=== PATIENT | male | born 1940 | race Caucasian/White ===

== ENCOUNTER 2023-07-22 12:40 | Emergency (ER) | payer MEDICARE, OTHER, SELFPAY ==
[2023-07-22 12:51] VITALS: BP 165/89
[2023-07-22 13:16] LABS: % Basophils 0.5 % (0-2); % Eosinophils 2.5 % (0-6); % Immature Granulocytes 0.3 % (0-0.5); % Lymphocytes 18.1 % (20.5-51.1); % Monocytes 12.5 % (1.7-9.3); % Neutrophils 66.1 % (42.2-75.2); Absolute Eosinophils 0.2 10^3/uL (0-0.7); Absolute Lymphocytes 1.2 10^3/uL (1.2-3.4); Absolute Monocytes 0.8 10^3/uL (0.1-0.6); Absolute Neutrophils 4.2 10^3/uL (1.4-6.5); Hematocrit 42.5 % (39.0-52.0); Hemoglobin 14.1 g/dL (13.0-18.0); Mean Corp Hgb Conc. 33.2 g/dL (33.0-37.0); Mean Corpuscular Hgb 32.9 pg (27.0-31.0); Mean Corpuscular Volume 99.1 fL (80.0-94.0); Mean Platelet Volume 13.4 fL (7.4-10.4); Nucleated Red Blood Cells % 0 % (-); Platelet Count 128 10^3/uL (130-400); Red Blood Cell Count 4.29 10^6/uL (4.70-6.10); Red Cell Dist. Width 12.3 % (11.5-14.5); White Blood Cell Count 6.3 10^3/uL (4.8-10.8)
[2023-07-22 13:27] VITALS: BP 131/71
[2023-07-22 13:28] VITALS: BMI 32.3
[2023-07-22 13:33] LABS: ALT (SGPT) 24 U/L (0-50); AST (SGOT) 32 U/L (17-59); Albumin 4.1 g/dl (3.5-5.0); Alkaline Phosphatase 98 U/L (38-126); Blood Urea Nitrogen 24 mg/dl (9-20); Calcium 9.1 mg/dl (8.4-10.2); Carbon Dioxide 28 mmol/L (22-30); Chloride 105 mmol/L (98-107); Estimated Creatinine Clearance 45 ml/min; Glucose 108 mg/dl (70-99); Potassium 4.9 mmol/L (3.5-5.1); Sodium 137 mmol/L (135-145); Total Bilirubin 0.9 mg/dl (0.2-1.3); Total Protein 6.8 g/dl (6.3-8.2); eGFR 50.49
[2023-07-22 13:35] LABS: Troponin I < 0.012 ng/ml
[2023-07-22 14:00] VITALS: BP 125/74
--- NOTE | 2023-07-22 15:47 | ED.GENMED ---
History of Present Illness
General
Chief Complaint: Chest Pain
Source: patient and spouse
Exam Limitations: none
Time Seen by Provider: 07/22/23 13:32
Nursing documentation reviewed up to this point in time: agreed with
Travel History
Have you had any contact with someone who has COVID-19?: No
Do you have any symptoms of coronavirus? Fever > 100 degrees, chills, cough, shortness of breath, sore throat, loss of taste or smell, muscle aches, or headache?: No
History of Present Illness
History of Present Illness:
82-year-old male with past medical history of hypertension hyperlipidemia previous left-sided nephrectomy presenting to the emergency department today with concerns of chest discomfort started 1:00 in the morning roughly 12 hours prior to arrival to
the emergency department. Claims it was sharp and lasted for a few moments. Claims had some very minor discomfort to left chest at this point but denies this being consistent with pain. Denies any nausea vomiting shortness of breath diaphoresis
or additional symptoms associated.
Past History
Past History
ED Past Medical History: Other (kidney stone); Negative IDDM
ED Past Surgical History: Urological and Other (hernia repair); Negative Cardiac
Social History
Tobacco: Non-smoker
Alcohol: None
Drug: None
Personal:
Living: with family
Employment: Retired
Family History
Family History: Other (Noncontributory)
Review of Systems
Review of Systems
Allergies reviewed?: Yes
All Other Systems: ROS reviewed and negative except as documented in HPI and ROS
Phy Exam
Physical Exam
Physical Exam:
GENERAL: Alert , in no apparent distress
EYE: pupils equal and reactive
NECK: Supple, no significant adenopathy.
ENT: o/p clr, mmm.
CARDIAC: Regular rate and rhythm .
LUNGS: Clear breath sounds bilaterally, no acute respiratory distress, no wheezes/rales/rhonchi
ABDOMEN: Soft, without focal tenderness, no r/g, no cvat
NEUROLOGICAL: Alert and oriented, no focal neuro deficits
SKIN: Warm and dry, skin intact.
MUSCULOSKELETAL: No edema, well perfused.
PSYCH: Normal and appropriate interaction.
Scores
Heart Score for Chest Pain Patients
STEMI patient?: No
History: Slightly or Non-Suspicious
ECG: Normal
Age: >/= 65 years
Risk Factors: >/= 3 Risk Factors or History of CAD
Troponin: </= Normal Limit
Heart Score for Chest Pain Patients: 4
Heart Score Risk: 20.3% MACE over next 6 weeks
Course
Orders/Labs/Results
Orders:
Orders
07/22/23 12:41
ECG [Electrocardiogram (*1)] Urgent
Reason for Study: Chest Pain
EKG- Treatment ONCE
07/22/23 13:03
Complete Blood Count/With Diff Urgent
Comprehensive Metabolic Panel Urgent
Troponin I Urgent
07/22/23 13:50
Chest [CR Chest - 2 Views ] Urgent
Comment:
Reason For Exam: cp
07/22/23 15:01
EKG- Treatment ONCE
07/22/23 15:38
Troponin I Urgent
Abnormal Lab Results
07/22/23
13:03
RBC 4.29 L 10^6/uL
(4.70-6.10)
MCV 99.1 H fL
(80.0-94.0)
MCH 32.9 H pg
(27.0-31.0)
Plt Count 128 L 10^3/uL
(130-400)
MPV 13.4 H fL
(7.4-10.4)
Absolute Monos (auto) 0.8 H 10^3/uL
(0.1-0.6)
Lymphocytes % 18.1 L %
(20.5-51.1)
Monocytes % 12.5 H %
(1.7-9.3)
BUN 24 H mg/dl
(9-20)
Creatinine 1.4 H mg/dL
(0.7-1.3)
Glucose 108 H mg/dl
(70-99)
07/22/23 13:03
07/22/23 13:03
Vital Signs
Initial and Last Documented VS:
Initial Vital Signs
Temp Pulse Resp BP Pulse Ox
98.2 F 64 16 165/89 98
07/22/23 12:51 07/22/23 12:51 07/22/23 12:51 07/22/23 12:51 07/22/23 12:51
Last Documented Vital Signs
Temp Pulse Resp BP Pulse Ox
98.2 F 55 14 125/74 96
07/22/23 12:51 07/22/23 14:45 07/22/23 14:45 07/22/23 14:00 07/22/23 14:45
MDM/Problems Addressed
MDM/Problems Addressed:
82-year-old male presenting to the emergency department today with concerns of chest discomfort. He claims it was sharp pain that he felt to build night last night lasted for few minutes and has otherwise resolved but does have a very mild
irritation feeling to the left chest denies associated shortness of breath nausea vomiting or additional concerns. Here he is in normal heart and lung examination initially was hypertensive but that improved without specific treatment. Patient in
no distress throughout ER stay initial EKG is normal unchanged troponin negative labs unremarkable creatinine slightly elevated but at his baseline. Repeated EKG and troponin performed. No changes on EKG troponin negative x 2. Patient appears
stable for outpatient close follow-up with cardiology. Return precautions were given.
*Critical Care Note
Total Time (30-74mins, 75-104mins- exclusive of procedures): Not Applicable
ED Attending Note
-
Portions of this chart may have been created with voice recognition software.� Occasional wrong word or��sound alike� substitutions may have occurred due to the inherent limitations of voice recognition software.
Discharge Plan
Departure
Patient Disposition: Home (Routine Discharge)
Date of Disposition: 07/22/23
Time of Disposition: 16:25
Patient with high blood pressure during this ER visit?: No
Condition: Good
Covid-19: Not Applicable
Discharge Problem:
Chest pain
Instructions: Chest Pain DCA Follow Up
Prescriptions:
No Action
alfuzosin 10 MG tablet extended release 24 hr
10 mg PO QPM
atorvastatin [Lipitor] 10 mg Tablet
10 mg PO DAILY
zinc sulfate 50 mg zinc (220 mg) Tablet
50 mg PO DAILY
ascorbic acid (vitamin C) [Vitamin C] 500 mg Tablet
500 mg PO DAILY
cholecalciferol (vitamin D3) [Vitamin D3] 25 mcg (1,000 unit) Tablet
25 mcg PO DAILY
omega 3-pql-ozd-fish oil [Fish Oil] 1,000 mg (120 mg-180 mg) Capsule
1 cap PO DAILY
coQ10 (ubiquinol) 100 mg Capsule
100 mg PO DAILY
Referrals:
Pj Mendez MD [Family Provider] -
Activity Restrictions/Additional Instructions:
You came to the emergency department today with concerns of chest discomfort.. Reassuring evaluation 2 negative troponin test 2 normal EKGs and otherwise reassuring chest x-ray. Please follow closely with cardiology within the next week. Return
to the emergency department any worsening, new or concerning symptoms.
Interventions
Interventions:
*Risk Screen - Suicide Last Done: 07/22/23 13:42
*General Assessment Last Done: 07/22/23 13:42
*Neglect/Abuse Screening Last Done: 07/22/23 13:42
*ED COVID-19 Vaccine History Last Done: 07/22/23 12:51
ED- Cardiac Assessment Last Done: 07/22/23 13:42
[2023-07-22 16:00] VITALS: BP 156/70
[2023-07-22 16:20] LABS: Troponin I < 0.012 ng/ml
== END 2023-07-22 16:46 | disposition home or self-care (01) ==
LOC: EMR 12:40
PROVIDERS: Physician Assistant; EMERGENCY PHYSICIAN Emergency Medicine; FAMILY PHYSICIAN Family Medicine
DX: R07.9 Chest pain, unspecified (principal); I10 Essential (primary) hypertension
CPT/HCPCS: 99285; 71046; 80053; 84484; 85025; 93005

== ENCOUNTER → 2023-07-30 10:18 | Outpatient (REF) | payer MEDICARE, OTHER, SELFPAY ==
[2023-07-30 11:23] LABS: Hemoglobin 13.8 g/dL (13.0-18.0)
[2023-07-30 11:50] LABS: ALT (SGPT) 24 U/L (0-50); AST (SGOT) 31 U/L (17-59); Alkaline Phosphatase 97 U/L (38-126); Blood Urea Nitrogen 26 mg/dl (9-20); Calcium 9.1 mg/dl (8.4-10.2); Carbon Dioxide 27 mmol/L (22-30); Chloride 107 mmol/L (98-107); Glucose 117 mg/dl (70-99); HDL Cholesterol 43 mg/dl; LDL Cholesterol, Calculated 82 mg/dl; Potassium 4.4 mmol/L (3.5-5.1); Sodium 140 mmol/L (135-145); Total Cholesterol 153 mg/dl (50-199); Total Protein 6.6 g/dl (6.3-8.2); Triglyceride 143 mg/dl (10-149); Very Low Density Lipoprotein 28 mg/dl (0-30); eGFR 50.49
[2023-07-30 11:54] LABS: Calcium 9.4 mg/dl (8.4-10.2)
[2023-07-30 12:05] LABS: Intact PTH 75.1 pg/ml (13.6-85.8)
== END ==
LOC: REG 10:18
PROVIDERS: ATTENDING PHYSICIAN Nuclear Medicine Nuclear Cardiology; FAMILY PHYSICIAN Family Medicine; REFERRING PHYSICIAN Specialist
DX: R07.9 Chest pain, unspecified (principal); E78.2 Mixed hyperlipidemia; I45.10 Unspecified right bundle-branch block; N18.31 Chronic kidney disease, stage 3a
CPT/HCPCS: 36415; 80053; 80061; 83970; 85018

== ENCOUNTER → 2023-10-31 10:57 | Outpatient (REF) | payer MEDICARE, OTHER, SELFPAY | LOC: RCS 10:57 | PROVIDERS: ATTENDING PHYSICIAN Nuclear Medicine Nuclear Cardiology; FAMILY PHYSICIAN Family Medicine | DX: R07.9 Chest pain, unspecified (principal); R94.31 Abnormal electrocardiogram [ECG] [EKG]; R06.02 Shortness of breath | CPT/HCPCS: 93306 ==

== ENCOUNTER 2023-11-12 19:45 | Emergency (ER) | payer MEDICARE, OTHER, SELFPAY ==
[2023-11-12 19:46] VITALS: BP 121/98
--- NOTE | 2023-11-12 20:17 | ED.SKININJ ---
HPI-Injury
General
Chief Complaint: Bite
Source: patient and spouse
Exam Limitations: none
Time Seen by Provider: 11/12/23 19:56
Nursing documentation reviewed up to this point in time: agreed with
Travel History
Have you had any contact with someone who has COVID-19?: No
Do you have any symptoms of coronavirus? Fever > 100 degrees, chills, cough, shortness of breath, sore throat, loss of taste or smell, muscle aches, or headache?: No
History of Present Illness-Injury
Initial Injury comments:
83-year-old male with history as documented presents for evaluation of animal bite. Patient reports that about 2 hours prior to arrival he was picking up some branches out of a large pile in his yard. He says that when he wrapped his arms around
the pile he felt something bite him on the left forearm. He says he did not see any animal around but he quickly dropped the pile�he is not sure exactly what bit him. He came to the emergency room for assessment. He says there have been snakes in
his yard as well as various small mammals. He denies any complaints�he has no real pain around the bite, no swelling, no paresthesias. No other complaints. He is unsure of his last tetanus.
Past History
Past History
ED Past Medical History: Other (kidney stone); Negative IDDM
ED Past Surgical History: Urological and Other (hernia repair); Negative Cardiac
Social History
Tobacco: Non-smoker
Alcohol: None
Drug: None
Personal:
Living: with family
Employment: Retired
Family History
Family History: Other (Noncontributory)
Review of Systems
Review of Systems
All Other Systems: ROS reviewed and negative except as documented in HPI and ROS
Skin: Reports other (Animal bite)
Phy Exam
Physical Exam
Physical Exam:
General: Well appearing and non-toxic
HEENT: protecting airway
Neck: appears supple
CV: No evidence of cyanosis
Resp: No accessory muscle use
Abd: Non-distended
Extremities: No deformities
Neuro: Alert
Psych: Normal affect
Skin: Patient has 2 small puncture wounds on the left ventral forearm with no induration, erythema, bruising or any other apparent injury to the surrounding tissue
Scores
Heart Failure Risk
Heart Failure Risk Score: Not Applicable
Heart Score for Chest Pain Patients
STEMI patient?: Not applicable
Withdrawal Assessment of Alcohol
Withdrawal Assessment Completed?: Not applicable
Course
Orders/Labs/Results
Orders:
Orders
11/12/23 20:10
Amoxicillin 875 mg/Clav 125 mg [Augmentin 875 mg/125 mg] 1 tablet PO NOW STA
Rabies Vaccine (Pcec)/Pf [Rabavert Rabies Vacc W-Diluent] 2.5 unit IM .ONCE ONE
Tetanus/Diphth/Acelpertussis [Adacel] 0.5 ml IM .ONCE ONE
11/12/23 20:15
Rabies Immune Globulin/Pf [HyperRAB] 1,840 unit IM NOW STA
Vital Signs
Initial and Last Documented VS:
Initial Vital Signs
Temp Pulse Resp BP Pulse Ox
36.6 C 67 18 121/98 97
11/12/23 19:46 11/12/23 19:46 11/12/23 19:46 11/12/23 19:46 11/12/23 19:46
Last Documented Vital Signs
Temp Pulse Resp BP Pulse Ox
36.6 C 67 18 121/98 97
11/12/23 19:46 11/12/23 19:46 11/12/23 19:46 11/12/23 19:46 11/12/23 19:46
MDM/Problems Addressed
Differential Diagnosis Includes:
Animal bite
MDM/Problems Addressed:
83-year-old male presents with bite to the left forearm�he is not sure what bit him, was lifting a pile of branches and felt something bite him on the left forearm. He says he did not see any animals but dropped the pile rather quickly. He has 2
small puncture wounds to the left forearm as described above�there is no damage to the surrounding tissue. Wound was vigorously irrigated here. Favor based on appearance that this is likely a snake bite but given the uncertainty surrounding it we
will cover him with rabies prophylaxis, treat with Augmentin as well. Will update his tetanus.
*Pulse Oximetry
Patient hypoxic: no
*Critical Care Note
Total Time (30-74mins, 75-104mins- exclusive of procedures): Not Applicable
Data Reviewed
Source: patient and spouse
ED Attending Note
-
Portions of this chart may have been created with voice recognition software.� Occasional wrong word or��sound alike� substitutions may have occurred due to the inherent limitations of voice recognition software.
Discharge Plan
Departure
Patient Disposition: Home (Routine Discharge)
Date of Disposition: 11/12/23
Time of Disposition: 20:12
Patient with high blood pressure during this ER visit?: No
Discharge Problem:
Animal bite
Instructions: Animal Bites (DC), Rabies
Prescriptions:
New
RabAvert (PF) 2.5 unit Suspension For Reconstitution
1 ml IM . DIRECTED Qty: 3 0RF
Rx Instructions:
See Rabies Vaccine Post Exposure Prophylaxis Instruction Sheet for Dosing Instructions
amoxicillin-pot clavulanate 875-125 mg tablet
1 tab PO BID Qty: 14 0RF
No Action
alfuzosin 10 MG tablet extended release 24 hr
10 mg PO QPM
atorvastatin [Lipitor] 10 mg Tablet
10 mg PO DAILY
zinc sulfate 50 mg zinc (220 mg) Tablet
50 mg PO DAILY
ascorbic acid (vitamin C) [Vitamin C] 500 mg Tablet
500 mg PO DAILY
cholecalciferol (vitamin D3) [Vitamin D3] 25 mcg (1,000 unit) Tablet
25 mcg PO DAILY
omega 2-aev-rzp-fish oil [Fish Oil] 1,000 mg (120 mg-180 mg) Capsule
1 cap PO DAILY
coQ10 (ubiquinol) 100 mg Capsule
100 mg PO DAILY
Referrals:
Pj Mendez MD [Family Provider] - Call in 1-3 days for appt
Stand Alone Forms: Rabies Vaccine Post Exp Dosing
Activity Restrictions/Additional Instructions:
Thank you for visiting the Emergency Department at [facility].
1. Please schedule a follow up appointment as directed. Call first thing tomorrow morning to make an appointment.
2. If indicated, please take your medications as instructed and indicated on discharge paperwork.
3. If any of your symptoms do not improve, or persist, or become more severe within 6-12 hours, please return to the emergency department for further care.
4. Please return to the emergency department if you develop a headache, neck pain/stiffness, fever greater than 100.4F, chest pain, shortness of breath, persistent nausea, vomiting, slurred speech, difficulty walking, numbness/tingling, weakness,
signs of infection or any other symptoms that are worrisome to you.
Please call [phone] if you have any questions.
Interventions
Interventions:
*Risk Screen - Suicide Last Done: 11/12/23 19:46
*General Assessment Last Done: 11/12/23 19:46
*Neglect/Abuse Screening Last Done: 11/12/23 19:46
Discharge Date and Time
Print Language: POLISH
[2023-11-12] MEDS: AUGMENTIN 875 MG/125 MG 1 TABLET PO (20:26)
[2023-11-12] MEDS: ADACEL 0.5 ML IM (20:28)
[2023-11-12] MEDS: HyperRAB 1840 UNIT IM (20:50)
[2023-11-12] MEDS: RABAVERT RABIES VACC W-DILUENT 2.5 UNIT IM (20:50)
== END 2023-11-12 21:20 | disposition home or self-care (01) ==
LOC: EMR 19:45
PROVIDERS: EMERGENCY PHYSICIAN Emergency Medicine; FAMILY PHYSICIAN Family Medicine
DX: S51.852A Open bite of left forearm, initial encounter (principal); W64.XXXA Exposure to other animate mechanical forces, initial encounter; Z23 Encounter for immunization; Z87.442 Personal history of urinary calculi
CPT/HCPCS: 99282; 90471; 96372; 90375; 90675; 90715

== ENCOUNTER 2023-11-19 14:24 | Outpatient (RCR) | payer MEDICARE, OTHER, SELFPAY ==
[2023-11-15 14:30] VITALS: BP 135/71
[2023-11-15] MEDS: RABAVERT RABIES VACC W-DILUENT 2.5 UNIT IM (14:41)
[2023-11-19 14:46] VITALS: BP 127/61
[2023-11-19] MEDS: RABAVERT RABIES VACC W-DILUENT 2.5 UNIT IM (14:50)
== END 2023-11-20 09:51 | disposition home or self-care (01) ==
LOC: OID 14:24
PROVIDERS: ATTENDING PHYSICIAN Emergency Medicine; FAMILY PHYSICIAN Family Medicine
DX: Z20.3 Contact with and (suspected) exposure to rabies (principal); Z23 Encounter for immunization
CPT/HCPCS: 90471; 90675

== ENCOUNTER 2023-11-26 14:15 | Outpatient (RCR) | payer MEDICARE, OTHER, SELFPAY ==
[2023-11-26 14:40] VITALS: BP 140/69
[2023-11-26] MEDS: RABAVERT RABIES VACC W-DILUENT 2.5 UNIT IM (14:45)
== END 2023-12-25 23:59 | disposition home or self-care (01) ==
LOC: OID 14:15
PROVIDERS: ATTENDING PHYSICIAN Emergency Medicine; FAMILY PHYSICIAN Family Medicine
DX: Z20.3 Contact with and (suspected) exposure to rabies (principal); Z23 Encounter for immunization
CPT/HCPCS: 90471; 90675

== ENCOUNTER → 2024-01-24 11:01 | Outpatient (REF) | payer MEDICARE, OTHER, SELFPAY | LOC: HWRAD 11:01 | PROVIDERS: ATTENDING PHYSICIAN Specialist; FAMILY PHYSICIAN Family Medicine; REFERRING PHYSICIAN Surgery Vascular Surgery | DX: I71.40 Abdominal aortic aneurysm, without rupture, unspecified (principal) | CPT/HCPCS: 76770 ==

== ENCOUNTER → 2024-04-04 10:54 | Outpatient (REF) | payer MEDICARE, OTHER, SELFPAY | LOC: RCS 10:54 | PROVIDERS: ATTENDING PHYSICIAN Nuclear Medicine Nuclear Cardiology; FAMILY PHYSICIAN Family Medicine | DX: R07.9 Chest pain, unspecified (principal); R94.31 Abnormal electrocardiogram [ECG] [EKG]; R06.02 Shortness of breath; I45.10 Unspecified right bundle-branch block | CPT/HCPCS: 93306 ==

== ENCOUNTER → 2024-04-09 10:12 | Outpatient (REF) | payer MEDICARE, OTHER, SELFPAY ==
[2024-04-09 11:27] LABS: Hematocrit 41.9 % (39.0-52.0); Hemoglobin 14.1 g/dL (13.0-18.0)
[2024-04-09 11:52] LABS: Blood Urea Nitrogen 26 mg/dl (9-20); Calcium 9.4 mg/dl (8.4-10.2); Carbon Dioxide 28 mmol/L (22-30); Chloride 105 mmol/L (98-107); Glucose 104 mg/dl (70-99); Phosphorus 3.1 mg/dl (2.5-4.5); Potassium 4.4 mmol/L (3.5-5.1); Sodium 142 mmol/L (135-145); eGFR 54.85
[2024-04-09 11:54] LABS: HDL Cholesterol 38 mg/dl; LDL Cholesterol, Calculated 68 mg/dl; Total Cholesterol 138 mg/dl (50-199); Triglyceride 161 mg/dl (10-149); Very Low Density Lipoprotein 32 mg/dl (0-30)
[2024-04-09 12:18] LABS: Urine Protein < 5 mg/dl
[2024-04-09 12:29] LABS: Microalbumin, Random Urine <0.6 mg/dl (0.6-1.7)
[2024-04-11 15:06] LABS: Intact PTH 67.4 pg/ml (13.6-85.8)
== END ==
LOC: REG 10:12
PROVIDERS: ATTENDING PHYSICIAN Specialist; FAMILY PHYSICIAN Family Medicine; REFERRING PHYSICIAN Nuclear Medicine Nuclear Cardiology
DX: N18.31 Chronic kidney disease, stage 3a (principal); E78.2 Mixed hyperlipidemia
CPT/HCPCS: 36415; 80061; 80069; 82043; 82570; 83970; 84156; 85014; 85018

== ENCOUNTER 2024-05-31 16:19 | Emergency (ER) | payer MEDICARE, OTHER, SELFPAY ==
[2024-05-31 16:20] VITALS: BP 147/74
[2024-05-31 19:09] VITALS: BP 141/70
--- NOTE | 2024-05-31 20:39 | ED.GENMED ---
History of Present Illness
General
Chief Complaint: Breathing Problem
Source: patient and spouse
Exam Limitations: none
Time Seen by Provider: 05/31/24 20:25
History of Present Illness
History of Present Illness:
83yoM with a history of hypertension, hyperlipidemia, CKD, and prior nephrectomy presenting with his for evaluation of a cough. Patient has been sick for the past 4 to 5 days with a cough. Cough is productive of yellow mucus. He has been
using ljwv-sgn-cekbcnn medications including Robitussin and Mucinex. He is also experiencing some diarrhea. He denies any fevers. Patient was seen at urgent care prior to arrival and he was reportedly hypoxic to 86%. He denies any shortness of
breath or chest pain. No prior history of heart or lung disease.
Past History
Past History
ED Past Medical History: Other (kidney stone); Negative IDDM
ED Past Surgical History: Urological and Other (hernia repair); Negative Cardiac
Social History
Tobacco: Non-smoker
Alcohol: None
Drug: None
Personal:
Living: with family
Employment: Retired
Family History
Family History: Other (Noncontributory)
Phy Exam
General Physical Exam
General Presentation: well appearing and no apparent distress
General age: appears stated age
General Skin: warm and dry
General Habitus: normal
General Mental: alert
ENT Exam
ENT Exam: normocephalic
Cardiovascular Exam
Cardiovascular Exam: regular rate/rhythm and no murmur
Pulmonary Exam
Pulmonary Exam: lungs clear, no respiratory distress, no rales, no crackles and no rhonchi
Neurological Exam
Neurological Exam: alert
[place] Coma Scale
Eye Opening: Spontaneous
Verbal Response: Oriented
Motor Response: Obeys Commands
GCS Total Score: 15
Skin Exam
Skin Exam: normal color and warm/dry
Psychiatric Exam
Psychiatric Exam: normal mood/affect
Scores
Heart Failure Risk
Heart Failure Risk Score: Not Applicable
Course
Orders/Labs/Results
Orders:
Orders
05/31/24 16:24
CR Chest - 2 Views Urgent
Comment:
Reason For Exam: cough, reported hypoxia
05/31/24 20:[address] Non Medication Order As Directed
Physician Order: Ambulatory pulse ox
05/31/24 20:38
Respiratory Syncytial Virus Urgent
JAYLIN Source: Nasal Swab
Specimen Description:
Date Specimen was Collected: 05/31/24
Time Specimen was Collected: 21:52
05/31/24 21:46
COVID-19 Antigen Urgent
Source: Nasal Swab
Complete Blood Count/With Diff Urgent
Comprehensive Metabolic Panel Urgent
Manual Differential Urgent
Influenza A+B Rapid Molecular Urgent
JAYLIN Source: Nasal Swab
Specimen Description:
Abnormal Lab Results
05/31/24
21:46
WBC 3.7 L 10^3/uL
(4.8-10.8)
RBC 4.49 L 10^6/uL
(4.70-6.10)
MCV 96.2 H fL
(80.0-94.0)
MCH 31.8 H pg
(27.0-31.0)
Plt Count 116 L 10^3/uL
(130-400)
MPV 12.8 H fL
(7.4-10.4)
Band Neutrophils 4 H %
(0-3)
Monocytes (Manual) 12 H %
(2-9)
Sodium 133 L mmol/L
(135-145)
BUN 27 H mg/dl
(9-20)
Creatinine 1.6 H mg/dL
(0.7-1.3)
SARS-CoV-2 Antigen Positive A
(Negative)
05/31/24 21:46
05/31/24 21:46
Vital Signs
Initial and Last Documented VS:
Initial Vital Signs
Temp Pulse Resp BP Pulse Ox
98.1 F 81 20 147/74 95
05/31/24 16:20 05/31/24 16:20 05/31/24 16:20 05/31/24 16:20 05/31/24 16:20
Last Documented Vital Signs
Temp Pulse Resp BP Pulse Ox
98.1 F 83 17 149/94 94
05/31/24 16:20 05/31/24 22:58 05/31/24 22:58 05/31/24 22:58 05/31/24 22:58
MDM/Problems Addressed
Differential Diagnosis Includes:
83yoM here cough x 4-5 days. Productive of yellow sputum. Reportedly hypoxic to 86% at urgent care. Patient denies SOB/CP. Oxygen saturation 95% in triage. Remainder of vitals are normal. He is well appearing in no distress. Exam is reassuring.
Lungs CTA and respirations non-labored. Differential diagnosis includes but is not limited to: COVID, influenza, bronchitis, pneumonia
Initial ED plan: CXR obtained in triage which is negative for infiltrates. Will check CBC, CMP, and COVID/flu/RSV swab.
*Critical Care Note
Total Time (30-74mins, 75-104mins- exclusive of procedures): Not Applicable
Update Note
Update Note:
Patient tested positive for COVID. Labs reveal a mild leukopenia which is likely 2/2 viral illness. Renal function is at baseline. Oxygen saturation rechecked multiple times throughout ED stay and there were no episodes of hypoxia. Ambulatory pulse
ox 92%. No indication for hospitalization at this time. Supportive care and quarantine discussed. Advised close follow-up with PCP and ED return precautions discussed. Patient in agreement with plan and was discharged in stable condition.
ED Attending Note
-
Portions of this chart may have been created with voice recognition software.� Occasional wrong word or��sound alike� substitutions may have occurred due to the inherent limitations of voice recognition software.
Discharge Plan
Departure
Patient Disposition: Home (Routine Discharge)
Date of Disposition: 05/31/24
Time of Disposition: 22:45
Patient with high blood pressure during this ER visit?: No
Discharge Problem:
COVID-19
Instructions: Coronavirus Home Quarantine
Prescriptions:
No Action
alfuzosin 10 MG tablet extended release 24 hr
10 mg PO QPM
atorvastatin [Lipitor] 10 mg Tablet
10 mg PO DAILY
zinc sulfate 50 mg zinc (220 mg) Tablet
50 mg PO DAILY
ascorbic acid (vitamin C) [Vitamin C] 500 mg Tablet
500 mg PO DAILY
cholecalciferol (vitamin D3) [Vitamin D3] 25 mcg (1,000 unit) Tablet
25 mcg PO DAILY
omega 4-rkv-qvf-fish oil [Fish Oil] 1,000 mg (120 mg-180 mg) Capsule
1 cap PO DAILY
coQ10 (ubiquinol) 100 mg Capsule
100 mg PO DAILY
RabAvert (PF) 2.5 unit Suspension For Reconstitution
1 ml IM . DIRECTED Qty: 3 0RF
Rx Instructions:
See Rabies Vaccine Post Exposure Prophylaxis Instruction Sheet for Dosing Instructions
Referrals:
Pj Mendez MD [Family Provider] -
Activity Restrictions/Additional Instructions:
Drink plenty of fluids and rest. Take Tylenol as needed for fevers/body aches. Wear your mask until day 10.
Please follow-up with your family doctor. Return to the ER with any worsening symptoms or shortness of breath.
Interventions
Interventions:
*Risk Screen - Suicide Last Done: 05/31/24 16:20
*General Assessment Last Done: 05/31/24 16:20
*Neglect/Abuse Screening Last Done: 05/31/24 16:20
*Nursing Disposition Last Done: 05/31/24 22:58
ED- Cardiac Assessment Last Done: 05/31/24 22:56
ED- Pulmonary Assessment Last Done: 05/31/24 22:56
Discharge Date and Time
Discharge Date/Time: 05/31/24 22:59
Print Language: [place]
[2024-05-31 22:04] LABS: COVID-19 Antigen Positive (Negative)
[2024-05-31 22:06] VITALS: BP 138/88
[2024-05-31 22:11] LABS: Hematocrit 43.2 % (39.0-52.0); Hemoglobin 14.3 g/dL (13.0-18.0); Mean Corp Hgb Conc. 33.1 g/dL (33.0-37.0); Mean Corpuscular Hgb 31.8 pg (27.0-31.0); Mean Corpuscular Volume 96.2 fL (80.0-94.0); Mean Platelet Volume 12.8 fL (7.4-10.4); Platelet Count 116 10^3/uL (130-400); Red Blood Cell Count 4.49 10^6/uL (4.70-6.10); Red Cell Dist. Width 13.1 % (11.5-14.5); White Blood Cell Count 3.7 10^3/uL (4.8-10.8)
[2024-05-31 22:20] LABS: ALT (SGPT) 34 U/L (0-50); AST (SGOT) 49 U/L (17-59); Albumin 4.1 g/dl (3.5-5.0); Alkaline Phosphatase 98 U/L (38-126); Blood Urea Nitrogen 27 mg/dl (9-20); Calcium 8.5 mg/dl (8.4-10.2); Carbon Dioxide 23 mmol/L (22-30); Chloride 99 mmol/L (98-107); Glucose 76 mg/dl (70-99); Potassium 4.8 mmol/L (3.5-5.1); Sodium 133 mmol/L (135-145); Total Bilirubin 0.6 mg/dl (0.2-1.3); Total Protein 6.6 g/dl (6.3-8.2); eGFR 42.75
[2024-05-31 22:33] LABS: Absolute Neutrophils -Man Diff 2.1 10^3/uL (1.4-6.5); Band Neutrophils 4 % (0-3); Lymphocytes 31 % (20-51); Monocytes 12 % (2-9); Normal RBC Morphology Yes; Platelets Checked Yes; Segmented Neutrophils 53 % (42-75); Total Cells Counted 100
[2024-05-31 22:58] VITALS: BP 149/94
== END 2024-05-31 22:59 | disposition home or self-care (01) ==
LOC: EMR 16:19
PROVIDERS: Physician Assistant; EMERGENCY PHYSICIAN Emergency Medicine; FAMILY PHYSICIAN Family Medicine
DX: U07.1 COVID-19 (principal); I12.9 Hypertensive chronic kidney disease with stage 1 through stage 4 chronic kidney disease, or unspecified chronic kidney disease; N18.9 Chronic kidney disease, unspecified; E78.5 Hyperlipidemia, unspecified
CPT/HCPCS: 99284; 71046; 80053; 85025; 87502; 87811

== ENCOUNTER 2024-06-08 18:28 | Inpatient (IN) | payer MEDICARE, OTHER, SELFPAY ==
[2024-06-05] VITALS (8 sets, daily range): BP systolic 95–130; BP diastolic 56–85; BMI 30.4
--- NOTE | 2024-06-05 12:40 | ED.GENMED ---
ED Provider Triage
<Ron Holder PA-C - Last Filed: 06/05/24 12:41>
-
Patient seen by provider in Triage?: Seen in Triage
83-year-old male presents with increased weakness persistent diarrhea and shortness of breath. He was here 5 days ago diagnosed with COVID. Brought here by EMS and started on nasal cannula oxygen. He notes no improvement of his symptoms. He
denies chest pain
He is requiring nasal cannula oxygen at triage but otherwise is stable we will start workup with labs and chest x-ray
Seen by healthcare provider at triage but warrants further assessment
History of Present Illness
<Ron Holder PA-C - Last Filed: 06/05/24 12:41>
General
Chief Complaint: Cold/Flu/URI Symptoms
Time Seen by Provider: 06/05/24 17:49
<Russ Block PA-C - Last Filed: 06/05/24 21:34>
History of Present Illness
History of Present Illness:
83-year-old male presents to the emergency department for evaluation of worsening shortness of breath, dry cough, and diarrhea. He began with symptoms approximately 10 days ago, was seen in this emergency department 5 days ago and diagnosed with
COVID-19. At that time chest x-ray was obtained showing no evidence for pneumonia. He is continue to feel weaker with poor p.o. intake is unable to ambulate steadily due to weakness.
Past History
<Ron Holder PA-C - Last Filed: 06/05/24 12:41>
Past History
ED Past Medical History: Other (kidney stone); Negative IDDM
ED Past Surgical History: Urological and Other (hernia repair); Negative Cardiac
Social History
Tobacco: Non-smoker
Alcohol: None
Drug: None
Personal:
Living: with family
Employment: Retired
Family History
Family History: Other (Noncontributory)
Review of Systems
<Russ Block PA-C - Last Filed: 06/05/24 21:34>
Review of Systems
Allergies reviewed?: Yes
All Other Systems: ROS reviewed and negative except as documented in HPI and ROS
Phy Exam
<Russ Block PA-C - Last Filed: 06/05/24 21:34>
Physical Exam
Physical Exam:
GEN: Well appearing, NAD, WDWN
HEENT: Oral mucosa moist, no scleral icterus
Cardiac: Regular rate
Lung: No respiratory distress, no tachypnea, grossly diminished breath sounds, crackles at the right base
MSK: No gross deformity or injuries
Skin: Good color, no pallor or jaundice, no rashes
Neuro: AO x3, moves all extremities freely
Psych: Calm, cooperative
Course
<Ron Holder PA-C - Last Filed: 06/05/24 12:41>
Orders/Labs/Results
Orders:
Orders
06/05/24 12:39
Electrocardiogram (*1) Urgent
Reason for Study: Fatigue / Weakness
EKG- Treatment ONCE
06/05/24 12:40
CR Chest - 2 Views Urgent
Comment:
Reason For Exam: SOB
06/05/24 13:36
Complete Blood Count/With Diff Urgent
Comprehensive Metabolic Panel Urgent
06/05/24 Dinner
Regular
At Your Request: Limited Participation
06/05/24 18:07
0.9% Sodium Chloride 1000 ml [Nss] 1,000 ml IV BOLUS
Azithromycin 500 mg/250 ml [Zithromax Infusion] 500 mg in 250 ml IV NOW
CefTRIAXone [Rocephin] 1,000 mg IV NOW STA
06/05/24 18:42
Admit/Transfer Patient As Directed
Co-Sign Provider:
Level of Care: Observation services
Assign to:: Medical/Surgical
Physician / Group: willie
Diagnosis: pneumonia, covid
PRN Pain Medication Management As Directed
May give lesser potent ordered pain med per pt: Yes
preference::
Protocol:: Medication orders for pain may be administered in a
manner that supports deferring to patient preference
when the pt is:
- Requesting an ordered lesser potent pain medication.
Least to most potent pain medications are defined
as: acetaminophen < NSAID < tramadol < opioids
(morphine, oxycodone, hydromorphone).
- Requesting a lesser dose of the same medication IF
ORDERED.
- Requesting a less intrusive route of administration
if both routes are prescribed by the provider (PO <
IV).
06/05/24 18:43
Code Status As Directed
Resuscitation Status: Full Code
06/05/24 18:46
CDIFF [C difficile Antigen & Toxins] Urgent
JAYLIN Source: Feces/Stool
Specimen Description:
Norovirus by PCR Urgent
JAYLIN Source: Feces/Stool
Specimen Description:
Sputum Culture [Respiratory Culture/Gram Stain] Urgent
JAYLIN Source: Sputum
Specimen Description:
Stool Culture Urgent
JAYLIN Source: Feces/Stool
Specimen Description:
06/05/24 20:56
Acetaminophen [Tylenol] 1,000 mg PO Q6HPRN PRN
Heparin 5,000 units SC Q12
Ondansetron Injectable [Zofran] 4 mg IV Q6HPRN PRN
06/05/24 20:56
Activity As Directed
Activity Level: As Tolerated
Vital Signs As Directed
Frequency: Per unit guidelines
DX Deep Vein Thrombosis Video Routine
06/05/24 22:00
Dexamethasone Sod Phosphate [Decadron] 6 mg IV Q24H
06/06/24 02:00
Doxycycline Hyclate [Vibramycin] 100 mg 0.9% Sodium Chloride 250 ml [Nss] 250 ml IV Q12H
06/06/24 06:00
Complete Blood Count/With Diff IN AM
Comprehensive Metabolic Panel IN AM
06/06/24 08:00
Ascorbic Acid [Vitamin C] 500 mg PO DAILY
Atorvastatin [Lipitor] 10 mg PO DAILY
Cholecalciferol (Vitamin D3) [VITAMIN D3 (cholecalciferol)] 25 mcg PO DAILY
Metoprolol Xl [Toprol Xl] 25 mg PO DAILY
Zinc 50mg (Zinc Sulfate 220mg) [Zinc] 50 mg PO DAILY
06/06/24 18:00
Tamsulosin [Flomax] 0.4 mg PO QPM
06/06/24 20:00
CefTRIAXone [Rocephin] 1,000 mg IV Q24H
Abnormal Lab Results
06/05/24
13:36
RBC 4.49 L 10^6/uL
(4.70-6.10)
MCH 31.6 H pg
(27.0-31.0)
Plt Count 78 L D 10^3/uL
(130-400)
MPV 12.7 H fL
(7.4-10.4)
Absolute Lymphs (auto) 0.9 L 10^3/uL
(1.2-3.4)
Absolute Monos (auto) 1.0 H 10^3/uL
(0.1-0.6)
Lymphocytes % 16.7 L %
(20.5-51.1)
Monocytes % 19.6 H %
(1.7-9.3)
Sodium 134 L mmol/L
(135-145)
Carbon Dioxide 20 L mmol/L
(22-30)
BUN 22 H mg/dl
(9-20)
Creatinine 1.4 H mg/dL
(0.7-1.3)
Glucose 109 H mg/dl
(70-99)
AST 66 H U/L
(17-59)
Total Protein 6.2 L g/dl
(6.3-8.2)
06/05/24 13:36
06/05/24 13:36
Vital Signs
Initial and Last Documented VS:
Initial Vital Signs
Temp Pulse Resp BP Pulse Ox
98.5 F 79 16 95/56 93
06/05/24 12:38 06/05/24 12:38 06/05/24 12:38 06/05/24 12:38 06/05/24 12:38
Last Documented Vital Signs
Temp Pulse Resp BP Pulse Ox
98.2 F 81 18 119/73 95
06/05/24 16:08 06/05/24 16:08 06/05/24 16:08 06/05/24 20:00 06/05/24 20:15
<Russ Block PA-C - Last Filed: 06/05/24 21:34>
Orders/Labs/Results
Orders:
Orders
06/05/24 12:39
Electrocardiogram (*1) Urgent
Reason for Study: Fatigue / Weakness
EKG- Treatment ONCE
06/05/24 12:40
CR Chest - 2 Views Urgent
Comment:
Reason For Exam: SOB
06/05/24 13:36
Complete Blood Count/With Diff Urgent
Comprehensive Metabolic Panel Urgent
06/05/24 Dinner
Regular
At Your Request: Limited Participation
06/05/24 18:07
0.9% Sodium Chloride 1000 ml [Nss] 1,000 ml IV BOLUS
Azithromycin 500 mg/250 ml [Zithromax Infusion] 500 mg in 250 ml IV NOW
CefTRIAXone [Rocephin] 1,000 mg IV NOW STA
06/05/24 18:42
Admit/Transfer Patient As Directed
Co-Sign Provider:
Level of Care: Observation services
Assign to:: Medical/Surgical
Physician / Group: willie
Diagnosis: pneumonia, covid
PRN Pain Medication Management As Directed
May give lesser potent ordered pain med per pt: Yes
preference::
Protocol:: Medication orders for pain may be administered in a
manner that supports deferring to patient preference
when the pt is:
- Requesting an ordered lesser potent pain medication.
Least to most potent pain medications are defined
as: acetaminophen < NSAID < tramadol < opioids
(morphine, oxycodone, hydromorphone).
- Requesting a lesser dose of the same medication IF
ORDERED.
- Requesting a less intrusive route of administration
if both routes are prescribed by the provider (PO <
IV).
06/05/24 18:43
Code Status As Directed
Resuscitation Status: Full Code
06/05/24 18:46
CDIFF [C difficile Antigen & Toxins] Urgent
JAYLIN Source: Feces/Stool
Specimen Description:
Norovirus by PCR Urgent
JAYLIN Source: Feces/Stool
Specimen Description:
Sputum Culture [Respiratory Culture/Gram Stain] Urgent
JAYLIN Source: Sputum
Specimen Description:
Stool Culture Urgent
JAYLIN Source: Feces/Stool
Specimen Description:
06/05/24 20:56
Acetaminophen [Tylenol] 1,000 mg PO Q6HPRN PRN
Heparin 5,000 units SC Q12
Ondansetron Injectable [Zofran] 4 mg IV Q6HPRN PRN
06/05/24 20:56
Activity As Directed
Activity Level: As Tolerated
Vital Signs As Directed
Frequency: Per unit guidelines
DX Deep Vein Thrombosis Video Routine
06/05/24 22:00
Dexamethasone Sod Phosphate [Decadron] 6 mg IV Q24H
06/06/24 02:00
Doxycycline Hyclate [Vibramycin] 100 mg 0.9% Sodium Chloride 250 ml [Nss] 250 ml IV Q12H
06/06/24 06:00
Complete Blood Count/With Diff IN AM
Comprehensive Metabolic Panel IN AM
06/06/24 08:00
Ascorbic Acid [Vitamin C] 500 mg PO DAILY
Atorvastatin [Lipitor] 10 mg PO DAILY
Cholecalciferol (Vitamin D3) [VITAMIN D3 (cholecalciferol)] 25 mcg PO DAILY
Metoprolol Xl [Toprol Xl] 25 mg PO DAILY
Zinc 50mg (Zinc Sulfate 220mg) [Zinc] 50 mg PO DAILY
06/06/24 18:00
Tamsulosin [Flomax] 0.4 mg PO QPM
06/06/24 20:00
CefTRIAXone [Rocephin] 1,000 mg IV Q24H
Abnormal Lab Results
06/05/24
13:36
RBC 4.49 L 10^6/uL
(4.70-6.10)
MCH 31.6 H pg
(27.0-31.0)
Plt Count 78 L D 10^3/uL
(130-400)
MPV 12.7 H fL
(7.4-10.4)
Absolute Lymphs (auto) 0.9 L 10^3/uL
(1.2-3.4)
Absolute Monos (auto) 1.0 H 10^3/uL
(0.1-0.6)
Lymphocytes % 16.7 L %
(20.5-51.1)
Monocytes % 19.6 H %
(1.7-9.3)
Sodium 134 L mmol/L
(135-145)
Carbon Dioxide 20 L mmol/L
(22-30)
BUN 22 H mg/dl
(9-20)
Creatinine 1.4 H mg/dL
(0.7-1.3)
Glucose 109 H mg/dl
(70-99)
AST 66 H U/L
(17-59)
Total Protein 6.2 L g/dl
(6.3-8.2)
06/05/24 13:36
06/05/24 13:36
Vital Signs
Initial and Last Documented VS:
Initial Vital Signs
Temp Pulse Resp BP Pulse Ox
98.5 F 79 16 95/56 93
06/05/24 12:38 06/05/24 12:38 06/05/24 12:38 06/05/24 12:38 06/05/24 12:38
Last Documented Vital Signs
Temp Pulse Resp BP Pulse Ox
98.2 F 81 18 119/73 95
06/05/24 16:08 06/05/24 16:08 06/05/24 16:08 06/05/24 20:00 06/05/24 20:15
<Russ Block PA-C - Last Filed: 06/05/24 21:34>
MDM/Problems Addressed
MDM/Problems Addressed:
Chest x-ray today reveals a right base infiltrate, given the duration of time from his initial symptom onset this is likely a secondary bacterial pneumonia. Labs are reassuring, pneumonia severity index score of 92 imparting moderate risk and thus
is suitable for inpatient hospitalization
<Russ Block PA-C - Last Filed: 06/05/24 21:34>
*Critical Care Note
Total Time (30-74mins, 75-104mins- exclusive of procedures): Not Applicable
ED Attending Note
<Ron Holder PA-C - Last Filed: 06/05/24 12:41>
-
Portions of this chart may have been created with voice recognition software.� Occasional wrong word or��sound alike� substitutions may have occurred due to the inherent limitations of voice recognition software.
Discharge Plan
Departure
Patient Disposition: Admit
Date of Disposition: 06/05/24
Time of Disposition: 18:16
Admit to: Med/Surg
Presentation/result/management discussed w/ accepting MD/DO: Hospitalist
Discharge Problem:
Right lower lobe pneumonia
Interventions
Interventions:
*Risk Screen - Suicide Last Done: 06/05/24 12:38
*General Assessment Last Done: 06/05/24 19:18
*Neglect/Abuse Screening Last Done: 06/05/24 12:38
*ED COVID-19 Vaccine History Last Done: 06/05/24 19:18
ED- Pulmonary Assessment Last Done: 06/05/24 19:18
[2024-06-05 13:51] LABS: % Basophils 0.4 % (0-2); % Eosinophils 0.2 % (0-6); % Immature Granulocytes 0.2 % (0-0.5); % Lymphocytes 16.7 % (20.5-51.1); % Monocytes 19.6 % (1.7-9.3); % Neutrophils 62.9 % (42.2-75.2); Absolute Lymphocytes 0.9 10^3/uL (1.2-3.4); Absolute Neutrophils 3.3 10^3/uL (1.4-6.5); Hemoglobin 14.2 g/dL (13.0-18.0); Mean Corp Hgb Conc. 33.8 g/dL (33.0-37.0); Mean Corpuscular Hgb 31.6 pg (27.0-31.0); Mean Corpuscular Volume 93.5 fL (80.0-94.0); Nucleated Red Blood Cells % 0 % (-); Red Blood Cell Count 4.49 10^6/uL (4.70-6.10); Red Cell Dist. Width 13.3 % (11.5-14.5); White Blood Cell Count 5.2 10^3/uL (4.8-10.8)
[2024-06-05 14:02] LABS: ALT (SGPT) 40 U/L (0-50); AST (SGOT) 66 U/L (17-59); Albumin 3.7 g/dl (3.5-5.0); Alkaline Phosphatase 76 U/L (38-126); Blood Urea Nitrogen 22 mg/dl (9-20); Calcium 8.4 mg/dl (8.4-10.2); Carbon Dioxide 20 mmol/L (22-30); Chloride 104 mmol/L (98-107); Glucose 109 mg/dl (70-99); Potassium 4.5 mmol/L (3.5-5.1); Sodium 134 mmol/L (135-145); Total Bilirubin 0.7 mg/dl (0.2-1.3); Total Protein 6.2 g/dl (6.3-8.2); eGFR 50.18
[2024-06-05 15:14] LABS: Mean Platelet Volume 12.7 fL (7.4-10.4); Platelet Count 78 10^3/uL (130-400)
--- NOTE | 2024-06-05 18:47 | HPS.HSE ---
Family Physician
-
Family Physician: Pj Mendez
Chief Complaint
-
shortness of breath
History of Present Illness
83-year-old male past medical history of kidney stones, CKD, prior nephrectomy, hypertension, obesity, presenting with weakness, productive cough, shortness of breath, persistent diarrhea and shortness of breath. Denies fever. Denies sore throat.
Denies nausea or vomiting. Patient was here 5 days ago diagnosed with COVID. He was not treated. He started having COVID symptoms around 10 days ago. He notes no improvement of symptoms and symptoms have been getting worse.
He is a former smoker. Denies alcohol.
Medical History
Past Medical History
Past Medical History: Reports Other ( kidney stones, CKD, prior nephrectomy, hypertension, obesity,)
Past Surgical History: Reports None
Social History
Tobacco: Former Smoker
Alcohol: None
Drug: None
Family History
Family History: Not pertinent
Allergies / Home Medications
Allergies reflects when Allergies were last updated in [employer].
Home Medications with original date entered in [employer]
Allergy/Medication List:
Allergies
Allergy/AdvReac Type Severity Reaction Status Date / Time
No Known Allergies Allergy Verified 06/05/24 12:38
Home Medications
alfuzosin 10 mg tablet,extended release 24 hr 10 mg PO QPM Urinary Issue 09/08/20
ascorbic acid (vitamin C) 500 mg tablet (Vitamin C) 500 mg PO DAILY Supplement 07/22/23
atorvastatin 10 mg tablet (Lipitor) 10 mg PO DAILY High Cholesterol 07/22/23
cholecalciferol (vitamin D3) 25 mcg (1,000 unit) tablet (Vitamin D3) 25 mcg PO DAILY Supplement 07/22/23
coQ10 (ubiquinol) 100 mg capsule 100 mg PO DAILY Supplement 07/22/23
omega 2-rev-thc-fish oil 1,000 mg (120 mg-180 mg) capsule (Fish Oil) 1 cap PO DAILY Supplement 07/22/23
zinc sulfate 50 mg zinc (220 mg) tablet 50 mg PO DAILY Supplement 07/22/23
acetaminophen 500 mg tablet (Tylenol Extra Strength) 1,000 mg PO Q6HPRN PRN mild pain/fever 06/05/24
metoprolol succinate 25 mg tablet,extended release 24 hr 25 mg PO DAILY 06/05/24
Review of Systems
-
History Source: Patient
A 12 point ROS was completed and negative except as noted: Yes
Constitutional: Reports No Symptoms
EENT: Reports No Symptoms
Respiratory: Reports See HPI
Cardiac: Reports No Symptoms
Abdomen/GI: Reports See HPI
: Reports No Symptoms
Musculoskeletal: Reports No Symptoms
Skin: Reports No Symptoms
Neurological: Reports No Symptoms
Endocrine: Reports No Symptoms
Hematologic/Lymphatic: Reports No Symptoms
Psych: Reports No Symptoms
Physical Exam
Vital Signs
Vital Signs
Temp Pulse Resp BP Pulse Ox
98.2 F 81 18 103/77 96
06/05/24 16:08 06/05/24 16:08 06/05/24 16:08 06/05/24 16:08 06/05/24 16:08
Physical Exam
General: Well Developed, Well Nourished and No Apparent Distress
HEENT: NormoCephalic, Moist mucous membranes and Atraumatic
Respiratory: Clear
Cardiac: S1/S2 and Regular Rhythm; No Murmur or Rub
GI: Soft, Non Tender, Non Distended and Normal Bowel Sounds; No Organomegaly
Rectal: Deferred by Provider
Musculoskeletal: No Clubbing, No Cyanosis and No Edema
Skin: No Rash
Neuro: Nonfocal/grossly intact
Laboratory Results
-
06/05/24 13:36
06/05/24 13:36
Laboratory Results
Total Bilirubin 0.7 mg/dl (0.2-1.3) 06/05/24 13:36
AST 66 U/L (17-59) H 06/05/24 13:36
ALT 40 U/L (0-50) 06/05/24 13:36
Alkaline Phosphatase 76 U/L (38-126) 06/05/24 13:36
Data Reviewed
-
Lab Data: Labs Reviewed by me
Old Records: Reviewed
Impression/Plan
-
IMPRESSION:
PLAN:
# Right basilar pneumonia concerning for bacterial pneumonia
# Recent COVID infection
-Patient diagnosed with COVID 5 days ago, had chest x-ray at that time without infiltrate
-Chest x-ray now showing right basilar pneumonia
-Check sputum culture
-Dexamethasone 6 mg daily
-Ceftriaxone/doxycycline
# Ongoing diarrhea possible norovirus versus COVID related
-Check norovirus, stool culture, C. difficile
# Worsening of chronic thrombocytopenia secondary to infection
-Platelets of 78
History of kidney stones
Chronic kidney disease
-IV fluids given
-Renal function at baseline
History of prior nephrectomy/solitary right kidney
Essential hypertension
-Continue metoprolol
Abdominal aortic aneurysm
Melanoma
Degenerative disc disease
Hyperlipidemia
-Continue statin
Laryngeal cancer s/p resection/radiation
BPH
-continue alfuzosin
Osteoarthritis
Obesity
Former smoker
Full code
DVT prophylaxis�heparin
Regular diet
[2024-06-05] MEDS: ROCEPHIN 1000 MG IV (19:24)
[2024-06-05] MEDS: NSS 1000 IV (19:25)
[2024-06-05] MEDS: ZITHROMAX INFUSION 250 IV (19:25)
[2024-06-05] MEDS: HEPARIN 5000 UNITS SC (21:54)
[2024-06-05] MEDS: DECADRON 6 MG IV (21:54)
[2024-06-06] VITALS (14 sets, daily range): BP systolic 103–135; BP diastolic 45–118; BMI 30.4
[2024-06-06] MEDS: VIBRAMYCIN 260 MG IV ×2 (01:40→14:51)
[2024-06-06 06:25] LABS: % Immature Granulocytes 0.3 % (0-0.5); % Lymphocytes 14.4 % (20.5-51.1); % Monocytes 5.7 % (1.7-9.3); % Neutrophils 79.6 % (42.2-75.2); Absolute Lymphocytes 0.6 10^3/uL (1.2-3.4); Absolute Monocytes 0.2 10^3/uL (0.1-0.6); Absolute Neutrophils 3.1 10^3/uL (1.4-6.5); Hematocrit 39.9 % (39.0-52.0); Hemoglobin 13.1 g/dL (13.0-18.0); Mean Corp Hgb Conc. 32.8 g/dL (33.0-37.0); Mean Corpuscular Hgb 31.3 pg (27.0-31.0); Mean Corpuscular Volume 95.2 fL (80.0-94.0); Nucleated Red Blood Cells % 0 % (-); Platelet Count 78 10^3/uL (130-400); Red Blood Cell Count 4.19 10^6/uL (4.70-6.10); Red Cell Dist. Width 13.2 % (11.5-14.5); White Blood Cell Count 3.8 10^3/uL (4.8-10.8)
[2024-06-06 06:39] LABS: ALT (SGPT) 37 U/L (0-50); AST (SGOT) 58 U/L (17-59); Albumin 3.2 g/dl (3.5-5.0); Alkaline Phosphatase 69 U/L (38-126); Blood Urea Nitrogen 23 mg/dl (9-20); Carbon Dioxide 18 mmol/L (22-30); Chloride 108 mmol/L (98-107); Estimated Creatinine Clearance 46 ml/min; Glucose 120 mg/dl (70-99); Potassium 4.7 mmol/L (3.5-5.1); Sodium 137 mmol/L (135-145); Total Bilirubin 0.4 mg/dl (0.2-1.3); Total Protein 5.7 g/dl (6.3-8.2); eGFR 54.85
[2024-06-06] MEDS: VITAMIN D3 (cholecalciferol) 25 MCG PO (10:50)
[2024-06-06] MEDS: LIPITOR 10 MG PO (10:50)
[2024-06-06] MEDS: HEPARIN 5000 UNITS SC ×2 (10:50→19:53)
[2024-06-06] MEDS: TOPROL XL 25 MG PO (10:51)
[2024-06-06] MEDS: VITAMIN C 500 MG PO (10:51)
[2024-06-06] MEDS: ZINC 50 MG PO (10:51)
--- NOTE | 2024-06-06 12:20 | W.PN.HOSP.TC ---
Today's Communication/Plan
-
Continue current care
Assessment / Plan
Assessment / Plan
Gen-AAOx3, NAD
HEENT-NC, AT, anicteric, clear oral mm
Neck-supple
CV-reg, no M, +S1/S2
Lungs-clear B/L
Abd-soft, NT, ND
Ext-no edema
Musculoskeletal-no cyanosis, clubbing
Skin-warm and dry
Neuro-grossly non-focal
Psych-calm, cooperative
Community-acquired pneumonia -right lower lobe. Chest x-ray noted. Continue current antibiotics.
Recent COVID-19 infection - symptoms started approximately on May 27. Was evaluated in the emergency room on May 31 and discharged with symptomatic treatment. Chest x-ray on May 31 was read as clear with mild elevation of the anterior
right hemidiaphragm.
Started on steroids last night although utility of steroids 10 days into COVID infection is unknown.
Acute diarrhea -check stool studies if it persists.
Hyponatremia -POA. Improved.
CKD 3A -stable. Normal anion gap metabolic acidosis noted.
Solitary kidney, history of nephrectomy.
Chronic thrombocytopenia -with intermittent leukopenia. Unclear etiology. Will need outpatient follow-up.
Hyperlipidemia -atorvastatin.
Essential hypertension -stable.
Nephrolithiasis
AAA
Melanoma history
History of laryngeal cancer -s/p resection, radiation.
BPH
Obesity due to excess calories
Full code
Anticipated Discharge: > 48 hours
Subjective/Interval History
-
Date of Service: June 06, 2024
Patient seen/examined. Starting to feel better.
Objective Data
-
Labs:
Laboratory Results
06/06/24
06:02
WBC 3.8 L
Hgb 13.1
Hct 39.9
Plt Count 78 L
Sodium 137
Potassium 4.7
Chloride 108 H
Carbon Dioxide 18 L
BUN 23 H
Creatinine 1.3
Glucose 120 H
Calcium 8.0 L
Total Bilirubin 0.4
AST 58
ALT 37
Alkaline Phosphatase 69
Vital Signs:
Vital Signs
Temp Pulse Resp BP Pulse Ox
98 F 86 18 114/56 94
06/05/24 22:02 06/06/24 10:51 06/05/24 16:08 06/06/24 10:51 06/06/24 10:00
I&O
06/05/24 06/06/24 06/07/24
06:59 06:59 06:59
Intake Total 490 / 490
Output Total 400 / 400
Balance 90 / 90
Review of Systems
-
History Source: Patient
All other systems: Reviewed and negative
[2024-06-06] MEDS: FLOMAX 0.4 MG PO (17:30)
[2024-06-06] MEDS: ROCEPHIN 1000 MG IV (19:53)
[2024-06-06] MEDS: STERILE WATER FOR INJECTION 10 ML IV (19:53)
[2024-06-06] MEDS: DECADRON 6 MG IV (22:13)
[2024-06-07] VITALS (11 sets, daily range): BP systolic 117–148; BP diastolic 52–97; PULSE 58; O2SAT 94–96; BMI 30.6
[2024-06-07] MEDS: VIBRAMYCIN 260 MG IV (02:14)
[2024-06-07 06:27] LABS: % Immature Granulocytes 0.6 % (0-0.5); % Lymphocytes 14.4 % (20.5-51.1); % Monocytes 7.6 % (1.7-9.3); % Neutrophils 77.4 % (42.2-75.2); Absolute Lymphocytes 0.7 10^3/uL (1.2-3.4); Absolute Monocytes 0.4 10^3/uL (0.1-0.6); Absolute Neutrophils 3.6 10^3/uL (1.4-6.5); Hematocrit 41.7 % (39.0-52.0); Hemoglobin 13.9 g/dL (13.0-18.0); Mean Corp Hgb Conc. 33.3 g/dL (33.0-37.0); Mean Corpuscular Volume 95.9 fL (80.0-94.0); Mean Platelet Volume 12.4 fL (7.4-10.4); Nucleated Red Blood Cells % 0 % (-); Platelet Count 96 10^3/uL (130-400); Red Blood Cell Count 4.35 10^6/uL (4.70-6.10); Red Cell Dist. Width 13.3 % (11.5-14.5); White Blood Cell Count 4.7 10^3/uL (4.8-10.8)
[2024-06-07 07:02] LABS: Blood Urea Nitrogen 29 mg/dl (9-20); Calcium 8.6 mg/dl (8.4-10.2); Carbon Dioxide 24 mmol/L (22-30); Chloride 108 mmol/L (98-107); Estimated Creatinine Clearance 55 ml/min; Glucose 138 mg/dl (70-99); Potassium 5.6 mmol/L (3.5-5.1); Sodium 139 mmol/L (135-145); eGFR > 60.00
[2024-06-07] MEDS: LIPITOR 10 MG PO (08:36)
[2024-06-07] MEDS: VITAMIN D3 (cholecalciferol) 25 MCG PO (08:36)
[2024-06-07] MEDS: HEPARIN 5000 UNITS SC ×2 (08:37→21:32)
[2024-06-07] MEDS: TOPROL XL PO (08:38)
[2024-06-07] MEDS: VITAMIN C 500 MG PO (09:20)
[2024-06-07] MEDS: ZINC 50 MG PO (09:20)
[2024-06-07] MEDS: LOKELMA 10 GRAM PO (11:30)
--- NOTE | 2024-06-07 11:57 | W.PN.HOSP.TC ---
Today's Communication/Plan
-
Lokelma
Repeat labs in the morning
Continue antibiotics
Acapella
Incentive spirometry
PT/OT
Assessment / Plan
Assessment / Plan
Gen-AAOx3, NAD
HEENT-NC, AT, anicteric, clear oral mm
Neck-supple
CV-reg, no M, +S1/S2
Lungs-clear B/L
Abd-soft, NT, ND
Ext-no edema
Musculoskeletal-no cyanosis, clubbing
Skin-warm and dry
Neuro-grossly non-focal
Psych-calm, cooperative
Acute hypoxic respiratory insufficiency -requiring 2 L nasal cannula oxygen. Etiology is pneumonia, recent COVID infection. Pulse ox dropped to 87% with exertion on room air during physical therapy today. Assess need for home oxygen prior to
discharge.
Community-acquired pneumonia -right lower lobe. Chest x-ray noted. Continue current antibiotics.
Recent COVID-19 infection - symptoms started approximately on May 27. Was evaluated in the emergency room on May 31 and discharged with symptomatic treatment. Chest x-ray on May 31 was read as clear with mild elevation of the anterior
right hemidiaphragm.
Started on steroids although utility of steroids 10 days into COVID infection is unknown.
Acute diarrhea -stool studies noted, negative for C. difficile, norovirus. Stool culture pending. Could be COVID induced diarrhea.
Hyponatremia -POA. Improved.
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 Creatinine improved to 1.1.
Solitary kidney, history of nephrectomy.
Hyperkalemia -potassium 5.6. Give a dose of Lokelma. Labs in the morning.
Chronic thrombocytopenia -with intermittent leukopenia. Unclear etiology. Will need outpatient follow-up.
Hyperlipidemia -atorvastatin.
Essential hypertension -stable.
Nephrolithiasis
AAA
Melanoma history
History of laryngeal cancer -s/p resection, radiation.
BPH
Obesity due to excess calories
Full code
Dispo -possible discharge Saturday if he continues to improve.
updated on the phone.
Anticipated Discharge: Within 24 hours
Subjective/Interval History
-
Date of Service: June 07, 2024
Patient seen and examined. Feeling stronger today. No complaints.
Objective Data
-
Labs:
Laboratory Results
06/07/24
06:12
WBC 4.7 L
Hgb 13.9
Hct 41.7
Plt Count 96 L D
Sodium 139
Potassium 5.6 H
Chloride 108 H
Carbon Dioxide 24
BUN 29 H
Creatinine 1.1
Glucose 138 H
Calcium 8.6
Vital Signs:
Vital Signs
Temp Pulse Resp BP Pulse Ox
97.8 F 65 18 130/82 95
06/07/24 11:49 06/07/24 11:49 06/07/24 11:49 06/07/24 11:49 06/07/24 11:49
I&O
06/06/24 06/07/24 06/08/24
06:59 06:59 06:59
Intake Total 490 / 490
Output Total 400 / 400
Balance 90 / 90
Review of Systems
-
History Source: Patient
All other systems: Reviewed and negative
--- NOTE | 2024-06-07 16:08 | CM ---
CM reviewed medical records. Patient lives independently with . Patient does not have a history of VN, SNF or DME. Patient is active with his PCP. Patient uses [facility].
Patient is agreeable to [facility]. Referral sent via [facility].
PLAN: Home with VN, possible oxygen.
[2024-06-07] MEDS: FLOMAX 0.4 MG PO (17:39)
--- NOTE | 2024-06-07 17:43 | PTCARENOTE ---
Patient admitted from ED. VSS. Call [facility]antes within reach.
[2024-06-07] MEDS: ROCEPHIN 1000 MG IV (21:33)
[2024-06-07] MEDS: DECADRON 6 MG IV (21:33)
[2024-06-07] MEDS: STERILE WATER FOR INJECTION 10 ML IV (21:33)
[2024-06-07] MEDS: VIBRAMYCIN 100 MG PO (21:33)
[2024-06-08 06:28] LABS: % Immature Granulocytes 0.4 % (0-0.5); % Lymphocytes 11.8 % (20.5-51.1); % Monocytes 7.1 % (1.7-9.3); % Neutrophils 80.7 % (42.2-75.2); Absolute Lymphocytes 0.6 10^3/uL (1.2-3.4); Absolute Monocytes 0.4 10^3/uL (0.1-0.6); Absolute Neutrophils 4.3 10^3/uL (1.4-6.5); Hematocrit 40.6 % (39.0-52.0); Hemoglobin 13.1 g/dL (13.0-18.0); Mean Corp Hgb Conc. 32.3 g/dL (33.0-37.0); Mean Corpuscular Hgb 31.1 pg (27.0-31.0); Mean Corpuscular Volume 96.4 fL (80.0-94.0); Mean Platelet Volume 12.4 fL (7.4-10.4); Nucleated Red Blood Cells % 0 % (-); Platelet Count 98 10^3/uL (130-400); Red Blood Cell Count 4.21 10^6/uL (4.70-6.10); Red Cell Dist. Width 13.4 % (11.5-14.5); White Blood Cell Count 5.3 10^3/uL (4.8-10.8)
[2024-06-08 06:42] LABS: Blood Urea Nitrogen 36 mg/dl (9-20); Calcium 8.6 mg/dl (8.4-10.2); Carbon Dioxide 25 mmol/L (22-30); Chloride 108 mmol/L (98-107); Estimated Creatinine Clearance 55 ml/min; Glucose 137 mg/dl (70-99); Potassium 4.9 mmol/L (3.5-5.1); Sodium 141 mmol/L (135-145); eGFR > 60.00
[2024-06-08 07:10] VITALS: BP 136/53
[2024-06-08] MEDS: VIBRAMYCIN 100 MG PO ×2 (08:38→20:08)
[2024-06-08] MEDS: VITAMIN D3 (cholecalciferol) 25 MCG PO (08:38)
[2024-06-08] MEDS: HEPARIN 5000 UNITS SC ×2 (08:38→20:08)
[2024-06-08] MEDS: VITAMIN C 500 MG PO (08:38)
[2024-06-08] MEDS: LIPITOR 10 MG PO (08:38)
[2024-06-08] MEDS: ZINC 50 MG PO (08:38)
[2024-06-08] MEDS: TOPROL XL 25 MG PO (08:41)
--- NOTE | 2024-06-08 08:56 | W.PN.HOSP.TC ---
Addendum entered and electronically signed by Mike Rodriguez MD 06/08/24 13:23:
PATIENT IS IN NEED OF OXYGEN ON EXERTION D/T PULSE OX OF 87%.
ON ROOM AIR AT REST; 96%
PATIENT WAS PLACED ON 2L N/C DURING AMBULATION and PULSE OX 95%
Oxygen will help improve hypoxia.
Original Note:
Today's Communication/Plan
-
Antibiotics and steroids. Home oxygen assessment. Discharge planning
Assessment / Plan
Assessment / Plan
Gen-AAOx3, NAD
HEENT-NC, AT, anicteric, clear oral mm
Neck-supple
CV-reg, no M, +S1/S2
Lungs-clear B/L
Abd-soft, NT, ND
Ext-no edema
Musculoskeletal-no cyanosis, clubbing
Skin-warm and dry
Neuro-grossly non-focal
Psych-calm, cooperative
A/P:
Acute hypoxic respiratory insufficiency -requiring 2 L nasal cannula oxygen. Etiology is pneumonia, recent COVID infection.Assess need for home oxygen prior to discharge. manager quality consult for DME and home health if needed. Plan to discharge
either later today or tomorrow.
Community-acquired pneumonia -right lower lobe. Chest x-ray noted. Continue current antibiotics.
Recent COVID-19 infection - symptoms started approximately on May 27. Was evaluated in the emergency room on May 31 and discharged with symptomatic treatment. Chest x-ray on May 31 was read as clear with mild elevation of the anterior
right hemidiaphragm.
Started on steroids although utility of steroids 10 days into COVID infection is unknown. Today is day #4. Continues to oral from tomorrow on.
Acute diarrhea -resolving. Likely COVID-19 related. Stool studies negative.
Hyponatremia -POA. Resolved
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 Creatinine improved to 1.1.
Solitary kidney, history of nephrectomy.
Hyperkalemia -resolved. Potassium 4.9 today
Chronic thrombocytopenia -with intermittent leukopenia. Unclear etiology. Will need outpatient follow-up.
Hyperlipidemia -atorvastatin.
Essential hypertension -stable.
Nephrolithiasis
AAA
Melanoma history
History of laryngeal cancer -s/p resection, radiation.
BPH
Obesity due to excess calories
Full code
Anticipated Discharge: Within 24 hours
Subjective/Interval History
-
Date of Service: June 08, 2024
patient feels better, less sob, less cough: still remains on oxygen with pulse ox around 92%
Objective Data
-
Labs:
Laboratory Results
06/08/24
05:37
WBC 5.3
Hgb 13.1
Hct 40.6
Plt Count 98 L
Sodium 141
Potassium 4.9
Chloride 108 H
Carbon Dioxide 25
BUN 36 H
Creatinine 1.1
Glucose 137 H
Calcium 8.6
Vital Signs:
Vital Signs
Temp Pulse Resp BP Pulse Ox
97.8 F 62 20 136/53 93
06/08/24 07:10 06/08/24 08:41 06/08/24 07:10 06/08/24 07:10 06/08/24 07:10
I&O
06/07/24 06/08/24 06/09/24
06:59 06:59 06:59
Intake Total 720 / 720
Output Total 100 / 100
Balance 620 / 620
--- NOTE | 2024-06-08 11:59 | CM ---
Patient chart reviewed.
COVID +
[facility] referral in [facility] - accepted.
02 2L n/a
per notes will need home 02 assessement prior to d/c
PLAN: home, [facility], watch for 02 needs
--- NOTE | 2024-06-08 12:56 | VNURNOTE ---
Home Health Liaison spoke with patient to discuss [facility] nurse/therapy, visits, schedule and homebound status. Patient is agreeable and understands that visits at home will be 2-3 x per week to assess and teach medical management. Patient is aware
that [facility] will contact them for start of care in 1-2 days after discharge from . [facility] referral accepted in [facility]. Watching for new home 02 needs.
--- NOTE | 2024-06-08 13:34 | VNURNOTE ---
Chart reviewed. Patient qualified for new home 02. Rx sent to Katty at [facility]. Faxed to [phone]. She will deliver portable 02 to bedside today. ELIAS blanco.
[2024-06-08 15:28] VITALS: BP 133/67
[2024-06-08] MEDS: FLOMAX 0.4 MG PO (16:38)
[2024-06-08] MEDS: ROCEPHIN 1000 MG IV (20:08)
[2024-06-08] MEDS: STERILE WATER FOR INJECTION 10 ML IV (20:09)
[2024-06-08] MEDS: DECADRON 6 MG IV (21:56)
[2024-06-08 23:19] VITALS: BP 136/58
[2024-06-09 07:50] VITALS: BP 121/65
--- NOTE | 2024-06-09 08:19 | W.PN.HOSP.TC ---
Addendum entered and electronically signed by Mike Rodriguez MD 06/09/24 19:12:
Yes, the symptoms necessitating the admission are related to COVID-19
Addendum entered and electronically signed by Mike Rodriguez MD 06/09/24 15:43:
After study IVANA has been ruled out
Original Note:
Today's Communication/Plan
-
Discharge planning
Assessment / Plan
Assessment / Plan
Gen-AAOx3, NAD
HEENT-NC, AT, anicteric, clear oral mm
Neck-supple
CV-reg, no M, +S1/S2
Lungs-clear B/L
Abd-soft, NT, ND
Ext-no edema
Musculoskeletal-no cyanosis, clubbing
Skin-warm and dry
Neuro-grossly non-focal
Psych-calm, cooperative
A/P:
Acute hypoxic respiratory insufficiency -requiring 2 L nasal cannula oxygen. Etiology is pneumonia, recent COVID infection.Assess need for home oxygen prior to discharge. marketing services manager on board. Plan to discharge today.
Community-acquired pneumonia from MSSA-right lower lobe. Chest x-ray noted. Continue current antibiotics. Sputum culture with Staph aureus-I called microbiology and no evidence of MRSA therefore likely MSSA and sensitivities will be back
tomorrow. It is okay to switch antibiotics to cefdinir now.
Recent COVID-19 infection - symptoms started approximately on May 27. Was evaluated in the emergency room on May 31 and discharged with symptomatic treatment. Chest x-ray on May 31 was read as clear with mild elevation of the anterior
right hemidiaphragm.
Started on steroids although utility of steroids 10 days into COVID infection is unknown. Today is day #5. Continues to oral from tomorrow on.
Acute diarrhea -resolving. Likely COVID-19 related. Stool studies negative.
Hyponatremia -POA. Resolved
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 Creatinine improved to 1.1.
Solitary kidney, history of nephrectomy.
Hyperkalemia -resolved. Potassium 4.9 today
Chronic thrombocytopenia -with intermittent leukopenia. Unclear etiology. Will need outpatient follow-up.
Hyperlipidemia -atorvastatin.
Essential hypertension -stable.
Nephrolithiasis
AAA
Melanoma history
History of laryngeal cancer -s/p resection, radiation.
BPH
Obesity due to excess calories
Full code
PATIENT IS IN NEED OF OXYGEN ON EXERTION D/T PULSE OX OF 87%.
ON ROOM AIR AT REST; 96%
PATIENT WAS PLACED ON 2L N/C DURING AMBULATION and PULSE OX 95%
Oxygen will help improve hypoxia.
Anticipated Discharge: Today
Subjective/Interval History
-
Date of Service: June 09, 2024
Patient with no new complaints. On supplemental oxygen
Objective Data
-
Vital Signs:
Vital Signs
Temp Pulse Resp BP Pulse Ox
97.7 F 59 16 121/65 92
06/09/24 07:50 06/09/24 07:50 06/09/24 07:50 06/09/24 07:50 06/09/24 07:50
I&O
06/08/24 06/09/24 06/10/24
06:59 06:59 06:59
Intake Total 720 / 720 1500 / 1500
Output Total 100 / 100 325 / 325
Balance 620 / 620 1175 / 1175
[2024-06-09] MEDS: VITAMIN C 500 MG PO (08:36)
[2024-06-09] MEDS: VIBRAMYCIN 100 MG PO (08:36)
[2024-06-09] MEDS: VITAMIN D3 (cholecalciferol) 25 MCG PO (08:36)
[2024-06-09] MEDS: ZINC 50 MG PO (08:36)
[2024-06-09] MEDS: TOPROL XL 25 MG PO (08:36)
[2024-06-09] MEDS: LIPITOR 10 MG PO (08:36)
[2024-06-09] MEDS: HEPARIN 5000 UNITS SC (08:37)
--- NOTE | 2024-06-09 10:01 | CM ---
Addendum entered by Clotilde Arredondo 06/09/24 15:12:
Notified Katty from [facility] patient was discharged and on the way home.
Original Note:
Patient qualifies for home 02-[employer] notified
Set up for home 02.
Portable 02 delivered to room at hospital
Referral in [facility] for [facility]
Patient inpatient LOC change-IMM signed. In chart
PLAN: Discharge when medically stable, home with [facility]
to transport
--- NOTE | 2024-06-09 12:40 | W.DCSUMMARY ---
Discharge Summary
Discharge Data
Date of Admission: 06/08/24
Date of Discharge: 06/09/24
-
Pending Results: No
Hospital Course
Patient 83 years old male with history of CKD, hypertension, prior nephrectomy, came into the hospital with cough and shortness of breath. He was found to have pneumonia and he had lingering symptoms from recent COVID-19 infection as well. He was
treated with IV antibiotics and IV steroids. He required oxygen supplementation. Patient has been afebrile and hemodynamically stable. Patient has improved substantially but still requiring oxygen and on home oxygen assessment he will benefit
from home oxygen upon discharge. PT OT evaluated patient recommended home health. mortgage sales manager consulted for home health needs. Patient will be discharged in stable condition today.
Discharge duration: 35 minutes
Discharge Plan
-
Patient Disposition: Home with Home Care
Discharge Diagnosis/Procedures: Acute hypoxic respiratory insufficiency. Community-acquired pneumonia. Coronavirus 19. Diarrhea. Hyponatremia. Acute kidney injury. Hyperkalemia. Chronic thrombocytopenia.
Condition: Good
Diet: Low Cholesterol
Activity: As tolerated
Driving Restrictions: As prior to admission
Bathing Restrictions: None
Blood Work: Please PCP to order CBC, BMP within 1 week
Other Services: PT and OT
Referrals:
Pj Mendez MD [Family Provider] - in less than 1 week
Prescriptions:
New
cefdinir 300 mg capsule
300 mg PO BID Qty: 10 0RF
dexamethasone 6 mg tablet
6 mg PO DAILY Qty: 6 0RF
Continued
alfuzosin 10 MG tablet extended release 24 hr
10 mg PO QPM
atorvastatin [Lipitor] 10 mg Tablet
10 mg PO DAILY
zinc sulfate 50 mg zinc (220 mg) Tablet
50 mg PO DAILY
ascorbic acid (vitamin C) [Vitamin C] 500 mg Tablet
500 mg PO DAILY
cholecalciferol (vitamin D3) [Vitamin D3] 25 mcg (1,000 unit) Tablet
25 mcg PO DAILY
omega 3-azg-ykp-fish oil [Fish Oil] 1,000 mg (120 mg-180 mg) Capsule
1 cap PO DAILY
coQ10 (ubiquinol) 100 mg Capsule
100 mg PO DAILY
acetaminophen [Tylenol Extra Strength] 500 mg Tablet
1,000 mg PO Q6HPRN PRN (Reason: mild pain/fever)
metoprolol succinate 25 mg Tablet Extended Release 24 Hr
25 mg PO DAILY
Discharge Orders:
Discharge Patient (As Directed); Ordered 06/09/24
Ordered By: Mike Rodriguez
Discharge Date and Time
Discharge Date/Time: 06/09/24 14:20
Print Language: ARABIC
[2024-06-09 13:49] VITALS: BP 153/77
--- NOTE | 2024-06-09 15:37 | PN.CDI ---
CDI
- -
CDI:
Physician Documentation Request
Admit Date: 06/08/24 18:28
Dear Doctor Jennifer,
Progress notes include a diagnosis of IVANA.
Creatinine results:
Laboratory Tests
06/05/24 06/06/24 06/07/24
13:36 06:02 06:12
Creatinine 1.4 H 1.3 1.1
06/08/24
05:37
Creatinine 1.1
Criteria for IVANA*
1 Increase in serum creatinine by > or = to 0.3 mg/dL (> or = to 26.5 micromol/L) within 48 hours, OR
2 Increase in serum creatinine to > or = to 1.5 times baseline, which is known or presumed to have occurred within 7 days, OR
3 Urine volume < 0.5 nL/kg/hour for six hours
Based on the above information and the recognized standard for IVANA could you please verify this diagnoses is still accurate and reflective of the patient�s condition to ensure quality of the medical record.
Please clarify in the Progress Notes:
�IVANA is/was present and is a clinical diagnosis based on (please include this additional support in the medical record)
�After study IVANA has been ruled out
�Other
Use of terms such as suspected, likely, concern for, or probable (associated with a specific diagnosis that is being evaluated, monitored, or treated as if it exists) are acceptable and can be coded in the inpatient setting, when documented at the
time of discharge.
Thank you,
Lacy Akhtar RN, BSN
CDI Specialist
tiger text
Please use your independent medical judgment in providing your response.
--- NOTE | 2024-06-09 15:43 | PN.CDI ---
CDI
- -
CDI:
Physician Documentation Request
Admit Date: 06/08/24 18:28
Dear Doctor Jennifer,
Reason for admission on 06/08 states 'pte p/w sob and hypoxia covid and pna'
Progress notes state 'Etiology if pneumonia, recent covid infection... Community acquired pneumonia for MSSA-right lower lobe.. continue antibiotics'
05/31 patient tested positive for covid at time of ED visit and was discharged.
Please clarify if there is a relationship between the symptoms necessitating the admission and COVID-19.
Yes, the symptoms necessitating the admission are related to COVID-19
No, the symptoms necessitating the admission are not related to COVID-19
Other (please specify)
Use of terms such as suspected, likely, concern for, or probable (associated with a specific diagnosis that is being evaluated, monitored, or treated as if it exists) are acceptable and can be coded in the inpatient setting, when documented at the
time of discharge.
Thank you,
Lacy Akhtar RN, BSN
CDI Specialist
tiger text
Please use your independent medical judgment in providing your response.
== END 2024-06-09 14:20 | disposition home health service (06) | DRG 177 ==
LOC: 2 NORTH 18:28
PROVIDERS: Hospitalist; Physician Assistant; ADMITTING PHYSICIAN Hospitalist; ATTENDING PHYSICIAN Hospitalist; EMERGENCY PHYSICIAN Student in an Organized Health Care Education/Training Program; FAMILY PHYSICIAN Family Medicine
DX: J15.211 Pneumonia due to Methicillin susceptible Staphylococcus aureus (principal); U07.1 COVID-19; E87.1 Hypo-osmolality and hyponatremia; Z87.891 Personal history of nicotine dependence
CPT/HCPCS: 71046; 80048; 80053; 85025; 87045; 87046; 87070; 87147; 87186; 87205; 87324; 87427; 87449; 87502; 87798; 93005; 96365; 96367; 96375; 99285

== ENCOUNTER → 2024-06-20 13:20 | Outpatient (REF) | payer MEDICARE, OTHER, SELFPAY ==
[2024-06-20 14:32] LABS: Blood Urea Nitrogen 36 mg/dl (9-20); Calcium 8.4 mg/dl (8.4-10.2); Carbon Dioxide 29 mmol/L (22-30); Chloride 98 mmol/L (98-107); Glucose 116 mg/dl (70-99); Potassium 4.8 mmol/L (3.5-5.1); Sodium 133 mmol/L (135-145); eGFR 54.85
[2024-06-20 15:01] LABS: Hematocrit 41.3 % (39.0-52.0); Hemoglobin 13.8 g/dL (13.0-18.0); Mean Corp Hgb Conc. 33.4 g/dL (33.0-37.0); Mean Corpuscular Hgb 31.9 pg (27.0-31.0); Mean Corpuscular Volume 95.6 fL (80.0-94.0); Red Blood Cell Count 4.32 10^6/uL (4.70-6.10); Red Cell Dist. Width 13.2 % (11.5-14.5); White Blood Cell Count 12.2 10^3/uL (4.8-10.8)
[2024-06-20 15:39] LABS: Platelet Count 113 10^3/uL (130-400)
== END ==
LOC: OIDL 13:20
PROVIDERS: ATTENDING PHYSICIAN Family Medicine
DX: D69.6 Thrombocytopenia, unspecified (principal); E78.2 Mixed hyperlipidemia
CPT/HCPCS: 80048; 85027

== ENCOUNTER → 2024-08-21 11:10 | Outpatient (REF) | payer MEDICARE, OTHER, SELFPAY | LOC: RAD 11:10 | PROVIDERS: ATTENDING PHYSICIAN Surgery Vascular Surgery; FAMILY PHYSICIAN Family Medicine | DX: I71.40 Abdominal aortic aneurysm, without rupture, unspecified (principal) | CPT/HCPCS: 76770 ==

== ENCOUNTER → 2024-09-08 16:45 | Outpatient (REF) | payer MEDICARE, OTHER, SELFPAY | LOC: RCS 16:45 | PROVIDERS: ATTENDING PHYSICIAN Nurse Practitioner; FAMILY PHYSICIAN Family Medicine; REFERRING PHYSICIAN Nuclear Medicine Nuclear Cardiology | DX: R94.31 Abnormal electrocardiogram [ECG] [EKG] (principal); R06.02 Shortness of breath | CPT/HCPCS: 93306 ==

== ENCOUNTER 2024-11-18 19:48 | Inpatient (IN) | payer MEDICARE, OTHER, SELFPAY ==
[2024-11-18 12:39] VITALS: BP 135/73
[2024-11-18 13:22] LABS: Lactic Acid 1.4 mmol/L (0.7-2.0)
[2024-11-18 13:30] LABS: ALT (SGPT) 13 U/L (0-50); AST (SGOT) 21 U/L (17-59); Albumin 4.1 g/dl (3.5-5.0); Alkaline Phosphatase 89 U/L (38-126); Blood Urea Nitrogen 25 mg/dl (9-20); Calcium 9.1 mg/dl (8.4-10.2); Carbon Dioxide 23 mmol/L (22-30); Chloride 109 mmol/L (98-107); Glucose 117 mg/dl (70-99); Sodium 139 mmol/L (135-145); Total Bilirubin 1.5 mg/dl (0.2-1.3); Total Protein 6.6 g/dl (6.3-8.2); eGFR 49.87
[2024-11-18 13:40] LABS: % Basophils 0.2 % (0-2); % Eosinophils 0.2 % (0-6); % Immature Granulocytes 0.5 % (0-0.5); % Lymphocytes 4.4 % (20.5-51.1); % Neutrophils 86.7 % (42.2-75.2); Absolute Immature Granulocytes 0.1 10^3/uL (0-0.05); Absolute Lymphocytes 0.5 10^3/uL (1.2-3.4); Absolute Neutrophils 10.6 10^3/uL (1.4-6.5); Hematocrit 41.9 % (39.0-52.0); Hemoglobin 14.1 g/dL (13.0-18.0); Mean Corp Hgb Conc. 33.7 g/dL (33.0-37.0); Mean Corpuscular Hgb 32.5 pg (27.0-31.0); Mean Corpuscular Volume 96.5 fL (80.0-94.0); Mean Platelet Volume 13.5 fL (7.4-10.4); Nucleated Red Blood Cells % 0 % (-); Platelet Count 130 10^3/uL (130-400); Red Blood Cell Count 4.34 10^6/uL (4.70-6.10); Red Cell Dist. Width 12.4 % (11.5-14.5); White Blood Cell Count 12.3 10^3/uL (4.8-10.8)
[2024-11-18 14:17] VITALS: BP 110/54
[2024-11-18 18:01] VITALS: BP 119/53
--- NOTE | 2024-11-18 18:02 | ED.GENMED ---
History of Present Illness
General
Chief Complaint: Cold/Flu/URI Symptoms
Source: patient and spouse
Exam Limitations: none
Time Seen by Provider: 11/18/24 16:42
Nursing documentation reviewed up to this point in time: agreed with
History of Present Illness
History of Present Illness:
Patient is an 84-year-old male brought to the ER by EMS. at bedside giving history. She reports patient does have some short-term memory issues. Patient for the past several days has had a sore throat and started with cough yesterday. He
has been doing a lot of sleeping. Patient presents awake alert he is having trouble giving me history.
He is not oxygen dependent. He is a non-smoker.
Past History
Past History
ED Past Medical History: Other (kidney stone); Negative IDDM
ED Past Surgical History: Urological and Other (hernia repair); Negative Cardiac
Social History
Tobacco: Non-smoker
Alcohol: None
Drug: None
Personal:
Living: with family
Employment: Retired
Family History
Family History: Other (Noncontributory)
Review of Systems
Review of Systems
Allergies reviewed?: Yes
All Other Systems: ROS reviewed and negative except as documented in HPI and ROS
Constitutional: Reports no symptoms; Denies fever, fatigue or chills
Respiratory: Reports cough; Denies trouble breathing
Cardiac: Reports no symptoms
ABD/GI: Reports no symptoms
: Reports no symptoms
Musculoskeletal: Reports no symptoms
Skin: Reports no symptoms
Neurological: Reports no symptoms
Psychiatric: Reports no symptoms
Phy Exam
General Physical Exam
General Presentation: no apparent distress
General age: appears stated age
General Skin: warm and dry
General Habitus: elderly
General Mental: alert
General Hydration: dry mucous membranes
Cardiovascular Exam
Cardiovascular Exam: regular rate/rhythm, no murmur and normal peripheral pulses
Pulmonary Exam
Pulmonary Exam: no respiratory distress and other (rhonchi right base )
Neurological Exam
Neurological Exam: alert
Musculoskeletal Exam
Musculoskeletal Exam: full ROM and other (Mild lower extremity swelling to ankles)
Skin Exam
Skin Exam: normal color and warm/dry
Psychiatric Exam
Psychiatric Exam: normal mood/affect
Course
Orders/Labs/Results
Orders:
Orders
11/18/24 12:43
Electrocardiogram (*1) Urgent
Reason for Study: Other
Other Reason for Exam: Possible Sepsis
11/18/24 12:44
EKG- Treatment ONCE
CR Chest - 2 Views Urgent
Comment:
Reason For Exam: suspected infection
11/18/24 12:59
Complete Blood Count/With Diff Urgent
Comprehensive Metabolic Panel Urgent
Lactic Acid Stat
Blood Culture Stat
JAYLIN Source: Blood/Venous
Specimen Description:
11/18/24 Dinner
Regular
At Your Request: Limited Participation
11/18/24 17:56
COVID-19 Antigen Urgent
Source: Nasal Swab
Influenza A+B Rapid Molecular Urgent
JAYLIN Source: Nasal Swab
Specimen Description:
11/18/24 18:06
Azithromycin 500 mg/250 ml [Zithromax Infusion] 500 mg in 250 ml IV NOW
CefTRIAXone [Rocephin] 1,000 mg IV NOW STA
11/18/24 19:02
Admit/Transfer Patient As Directed
Co-Sign Provider:
Level of Care: Inpatient admission
Assign to:: Medical/Surgical
Physician / Group: Erwin
Diagnosis: Multifocal pneumonia
Reason for Hospitalization: Pneumonia
Expected length of stay greater than two midnights?: Yes
ELOS- Estimated Length of Stay in days: 2
I certify the patient meets the requirements for IP care: Yes
11/18/24 19:03
Code Status As Directed
Resuscitation Status: Full Code
11/18/24 20:31
Acetaminophen [Tylenol] 650 mg PO Q4HPRN PRN
Guaifenesin [Mucinex] 600 mg PO Q12
Ipratropium/Albuterol Sulfate [Duoneb] 3 ml INH R Q4HPRN PRN
11/18/24 20:31
Activity As Directed
Activity Level: Out of Bed-Early Mobility
Intake/ Output As Directed
Frequency: Per unit guidelines
Vital Signs As Directed
Frequency: Per unit guidelines
Weight As Directed
Frequency: Once
Comment: on admission
O2 Therapy [RESP] Routine
Nasal Cannula Liter Flow: 2 LPM
Titrate/Wean O2 to maintain O2 sat greater than (%): 93
Special Instructions: Wean as tolerated
Pulse Ox/cont/shift [RESP] Routine
Quantity: 1
Special Instructions: notify provider if SPO2 < 91%
Rx Incentive Spirometry [RESP] Routine
Frequency: q1h while awake
Rx Pep / Acapela [RESP] Routine
Pt Eval And Treat Routine
Activity Level: With Assistance
Speech Therapy Eval & Treat Routine
DX Deep Vein Thrombosis Video Routine
11/18/24 23:29
MRSA Screen Routine
JAYLIN Source: Nose
Specimen Description:
11/18/24 23:45
Legionella Urinary Antigen Routine
JAYLIN Source: Urine
Specimen Description:
Respiratory Culture/Gram Stain Urgent
JAYLIN Source: Sputum
Specimen Description:
Date Specimen was Collected: 11/18/24
Time Specimen was Collected: 23:42
Strep pneumoniae Antigen Routine
JAYLIN Source: Urine
Specimen Description:
11/19/24 00:00
Heparin 5,000 units SC Q8
11/19/24 06:00
Basic Metabolic Panel IN AM
Complete Blood Count/No Diff IN AM
11/19/24 08:00
Amlodipine [Norvasc] 5 mg PO DAILY
Atorvastatin [Lipitor] 10 mg PO DAILY
Tamsulosin [Flomax] 0.4 mg PO DAILY
11/19/24 18:00
Azithromycin 500 mg/250 ml [Zithromax Infusion] 500 mg in 250 ml IV Q24H
CefTRIAXone [Rocephin] 1,000 mg IV Q24H
Abnormal Lab Results
11/18/24
12:59
WBC 12.3 H 10^3/uL
(4.8-10.8)
RBC 4.34 L 10^6/uL
(4.70-6.10)
MCV 96.5 H fL
(80.0-94.0)
MCH 32.5 H pg
(27.0-31.0)
MPV 13.5 H fL
(7.4-10.4)
Abs Immat Gran (auto) 0.1 H 10^3/uL
(0-0.05)
Absolute Neuts (auto) 10.6 H 10^3/uL
(1.4-6.5)
Absolute Lymphs (auto) 0.5 L 10^3/uL
(1.2-3.4)
Absolute Monos (auto) 1.0 H 10^3/uL
(0.1-0.6)
Neutrophils % 86.7 H %
(42.2-75.2)
Lymphocytes % 4.4 L %
(20.5-51.1)
Chloride 109 H mmol/L
(98-107)
BUN 25 H mg/dl
(9-20)
Creatinine 1.4 H mg/dL
(0.7-1.3)
Glucose 117 H mg/dl
(70-99)
Total Bilirubin 1.5 H mg/dl
(0.2-1.3)
11/18/24 12:59
11/18/24 12:59
Vital Signs
Initial and Last Documented VS:
Initial Vital Signs
Temp Pulse Resp BP Pulse Ox
100.3 F 76 16 135/73 90
11/18/24 12:39 11/18/24 12:39 11/18/24 12:39 11/18/24 12:39 11/18/24 12:39
Last Documented Vital Signs
Temp Pulse Resp BP Pulse Ox
100.8 F H 88 20 105/59 93
11/18/24 23:54 11/18/24 23:54 11/18/24 23:54 11/18/24 23:54 11/18/24 23:54
MDM/Problems Addressed
MDM/Problems Addressed:
Patient brought by for evaluation of cough sore throat increased sleepiness recently. Patient with a right-sided pneumonia, fevers pneumonia would recommend admission IV antibiotics ordered
*Radiology
Radiology exam reviewed: radiology read reviewed
*Pulse Oximetry
SaO2: 90
Oxygen Mode of Delivery: Room air
Patient hypoxic: yes
*EKG
Interpreted by ED Provider?: Yes
Heart Rate: 102
Rate: tachycardiac
Ischemia: non-specific ST changes
*Critical Care Note
Total Time (30-74mins, 75-104mins- exclusive of procedures): Not Applicable
ED Attending Note
-
Portions of this chart may have been created with voice recognition software.� Occasional wrong word or��sound alike� substitutions may have occurred due to the inherent limitations of voice recognition software.
Discharge Plan
Departure
Patient Disposition: Admit
Date of Disposition: 11/18/24
Time of Disposition: 18:21
Admit to: Med/Surg
Admit to doctor: hospitalist
Presentation/result/management discussed w/ accepting MD/DO: Hospitalist
Patient with high blood pressure during this ER visit?: No
Condition: Fair
Discharge Problem:
right sided pneumonia
Interventions
Interventions:
*Risk Screen - Suicide Last Done: 11/18/24 12:39
*General Assessment Last Done: 11/18/24 16:45
*Neglect/Abuse Screening Last Done: 11/18/24 12:39
*ED- Fall Risk Assessment Last Done: 11/18/24 16:45
*ED COVID-19 Vaccine History Last Done: 11/18/24 16:45
*Nursing Disposition Last Done: 11/18/24 20:23
ED- Pulmonary Assessment Last Done: 11/18/24 16:45
Discharge Date and Time
Discharge Date/Time: 11/18/24 20:24
[2024-11-18] MEDS: ROCEPHIN 1000 MG IV (18:11)
[2024-11-18] MEDS: ZITHROMAX INFUSION 250 IV (18:13)
[2024-11-18 18:27] LABS: COVID-19 Antigen Negative (Negative)
--- NOTE | 2024-11-18 18:31 | HPS.HSE ---
Family Physician
-
Family Physician: Pj Mendez
Chief Complaint
-
Cough, SOB
History of Present Illness
This is a 84-year-old male with past medical history significant for obesity, hypertension, CKD status post prior nephrectomy, nephrolithiasis and hyperlipidemia, prior smoker and not on home O2 presenting to the emergency department with fevers
chills cough and shortness of breath.
Patient unable to provide much history, according to spouse patient has been having several days of sore throat and then 1 year ago he started having a cough. It appears to be productive. He has also been quite sleepy. He apparently awoke this
morning with fevers chills and he has been coughing all day. He had Tylenol last night. Unsure if he had additional Tylenol today. No awareness of any known sick contacts. He has no recent travels. He was last hospitalized here in May. He
had right lower lobe pneumonia at the time. After that hospitalization patient subsequently developed COVID and secondary pneumonia and was admitted at [facility]. At the time was found to have pulmonary embolism and was treated with 3
months of anticoagulation now off. Was also found to have profound bradycardia during that admission he is metoprolol was discontinued. In addition he had elevated LFTs which resolved after discontinuation of statin, patient now back on statin.
Here in the emergency department he was febrile to 100.3, he was hypoxic to 90% on room air. Blood pressure was 110/54 with a pulse rate of 88 and he was tachypneic to the high 20s.
His chest x-ray shows right middle lobe, right lower lobe infiltrates. ECG shows sinus tachycardia at 102 with right bundle unchanged from prior.
He has a white count of 12.3, hemoglobin and platelets were normal. His electrolytes were all normal. BUN/creatinine was stable at 25 and 1.4
Medical History
Past Medical History
Past Medical History: Reports Other ( kidney stones, CKD, prior nephrectomy, hypertension, obesity, infrarenal AAA, pulmonary embolism in the setting of COVID and hospitalization status post anticoagulation of)
Past Surgical History: Reports None and Other (Left nephrectomy)
Social History
Tobacco: Former Smoker
Alcohol: None
Drug: None
Personal:
Living: With Family
Family History
Family History: Not pertinent
Allergies / Home Medications
Allergies reflects when Allergies were last updated in [facility].
Home Medications with original date entered in [facility]
Allergy/Medication List:
Allergies
Allergy/AdvReac Type Severity Reaction Status Date / Time
No Known Allergies Allergy Verified 06/05/24 12:38
Home Medications
alfuzosin 10 mg tablet,extended release 24 hr 10 mg PO QPM Urinary Issue 09/08/20
ascorbic acid (vitamin C) 500 mg tablet (Vitamin C) 500 mg PO DAILY Supplement 07/22/23
atorvastatin 10 mg tablet (Lipitor) 10 mg PO DAILY High Cholesterol 07/22/23
cholecalciferol (vitamin D3) 25 mcg (1,000 unit) tablet (Vitamin D3) 25 mcg PO DAILY Supplement 07/22/23
coQ10 (ubiquinol) 100 mg capsule 100 mg PO DAILY Supplement 07/22/23
omega 1-snh-xpg-fish oil 1,000 mg (120 mg-180 mg) capsule (Fish Oil) 1 cap PO DAILY Supplement 07/22/23
zinc sulfate 50 mg zinc (220 mg) tablet 50 mg PO DAILY Supplement 07/22/23
acetaminophen 500 mg tablet (Tylenol Extra Strength) 1,000 mg PO Q6HPRN PRN mild pain/fever 06/05/24
metoprolol succinate 25 mg tablet,extended release 24 hr 25 mg PO DAILY 06/05/24
Review of Systems
-
History Source: Family
Constitutional: Reports Fatigue, Sleep Disturbance and Chills
EENT: Reports Sore Throat
Respiratory: Reports Cough and Trouble Breathing
Cardiac: Reports No Symptoms
Abdomen/GI: Reports No Symptoms
: Reports No Symptoms
Musculoskeletal: Reports No Symptoms
Skin: Reports No Symptoms
Neurological: Reports No Symptoms
Endocrine: Reports No Symptoms
Hematologic/Lymphatic: Reports No Symptoms
Psych: Reports No Symptoms
Physical Exam
Vital Signs
Vital Signs
Temp Pulse Resp BP Pulse Ox
100.3 F 88 30 110/54 90
11/18/24 12:39 11/18/24 18:00 11/18/24 18:00 11/18/24 14:17 11/18/24 18:02
Physical Exam
General: Well Developed, Well Nourished and No Apparent Distress
HEENT: NormoCephalic, Moist mucous membranes and Atraumatic
Respiratory: Clear, Crackles, Non Labored Respirations and Other (Left-sided diaphragmatic hernia); No Accessory Resp Muscle Use
Cardiac: S1/S2 and Regular Rhythm; No Murmur or Rub
GI: Soft, Non Tender, Non Distended and Normal Bowel Sounds; No Organomegaly
Rectal: Deferred by Provider
Musculoskeletal: No Clubbing, No Cyanosis and No Edema
Skin: No Rash
Neuro: Alert, Oriented (To person and place) and Nonfocal/grossly intact
Laboratory Results
-
11/18/24 12:59
11/18/24 12:59
Laboratory Results
Lactic Acid 1.4 mmol/L (0.7-2.0) 11/18/24 12:59
Total Bilirubin 1.5 mg/dl (0.2-1.3) H 11/18/24 12:59
AST 21 U/L (17-59) 11/18/24 12:59
ALT 13 U/L (0-50) 11/18/24 12:59
Alkaline Phosphatase 89 U/L (38-126) 11/18/24 12:59
Data Reviewed
-
Diagnostic Radiology: Image Personally Visualized and interpreted and Report Reviewed by me
Medical Tests (Nuc Med, Echo, EKG etc): Image Personally Visualized and interpreted
Lab Data: Labs Reviewed by me
Old Records: Reviewed
Impression/Plan
-
IMPRESSION:
84-year-old with past medical history of hypertension, obesity, CKD, hyperlipidemia, AAA with recent ultrasound showing stability presenting to the emergency department with cough, shortness of breath, hypoxia and a fever. Chest x-ray shows right
middle and right lower lobe infiltrates. He has leukocytosis. He remains hemodynamically stable.
PLAN:
Right-sided multifocal pneumonia -high risk of decompensation
-Admit to [facility]
-Blood cultures
-Sputum culture
-COVID/flu negative
-Legionella and pneumococcal urinary antigens
-Given no history of MRSA and no pseudomonal history, ceftriaxone and azithromycin for now, mrsa swab, broaden abx if decompensates
-Supportive measures, with supplemental oxygen, no indication for noninvasive positive pressure at this time
- ==
Hypertension
-amlodipine with hold parameters
AAA - stable size
-Continue antihypertensive
-Continue statin, lfts normalized
BPH
- Continue alfuzosin
DVT prophylaxis -heparin subcu
CODE STATUS�full code
[2024-11-18 19:00] VITALS: BP 112/59
[2024-11-18 20:44] VITALS: BMI 32.1
[2024-11-18 20:48] VITALS: BP 119/50
[2024-11-18] MEDS: MUCINEX 600 MG PO (21:06)
[2024-11-18] MEDS: HEPARIN 5000 UNITS SC (23:39)
[2024-11-18 23:54] VITALS: BP 105/59
[2024-11-19] MEDS: TYLENOL 1000 MG PO ×2 (06:41→19:48)
[2024-11-19 06:48] LABS: Hematocrit 35.3 % (39.0-52.0); Mean Corpuscular Hgb 32.7 pg (27.0-31.0); Mean Corpuscular Volume 96.2 fL (80.0-94.0); Mean Platelet Volume 13.3 fL (7.4-10.4); Platelet Count 119 10^3/uL (130-400); Red Blood Cell Count 3.67 10^6/uL (4.70-6.10); Red Cell Dist. Width 12.8 % (11.5-14.5); White Blood Cell Count 14.5 10^3/uL (4.8-10.8)
[2024-11-19 07:15] LABS: Blood Urea Nitrogen 27 mg/dl (9-20); Calcium 8.5 mg/dl (8.4-10.2); Carbon Dioxide 21 mmol/L (22-30); Chloride 109 mmol/L (98-107); Estimated Creatinine Clearance 41 ml/min; Glucose 92 mg/dl (70-99); Potassium 3.8 mmol/L (3.5-5.1); Sodium 137 mmol/L (135-145); eGFR 45.91
[2024-11-19 07:31] LABS: Glucose - Point of Care 92 mg/dl (70-99)
[2024-11-19 08:16] VITALS: BP 127/83
[2024-11-19] MEDS: FLOMAX 0.4 MG PO (09:19)
[2024-11-19] MEDS: HEPARIN 5000 UNITS SC ×3 (09:19→23:11)
[2024-11-19] MEDS: NORVASC 5 MG PO (09:20)
[2024-11-19] MEDS: MUCINEX 600 MG PO ×2 (09:20→19:48)
[2024-11-19] MEDS: LIPITOR 10 MG PO (09:20)
--- NOTE | 2024-11-19 09:25 | CON.PUL ---
Consultation
Consultation Request
Date/Time Consultation Requested: 11/19/2024
Date/Time Consultation Performed: 11/19/2024
Requesting Provider: Elly Short
Performing Provider: William Castillo
Reason for Consultation: Cough, pneumonia
Medical History
-
Chief Complaint: Cough
History of Present Illness:
Patient is a very pleasant 84-year-old gentleman prior history of smoking, who presented to the emergency room with fever, cough and dyspnea. Reportedly patient developed some sore throat followed by cough and reportedly had fever and chills
yesterday. No reported sick contacts or any recent travel. Patient had a similar hospitalization in May when he was noted to have right lower lobe pneumonia which was treated with antibiotic. Also reported history of COVID-19 and a pneumonia
requiring admission at [facility]. Stay over there was complicated by pulmonary embolism for which she was treated with anticoagulants for 3 months.
During presentation in the emergency room patient was noted to be febrile and had borderline oxygen saturation or of about 90% on room air. He was admitted to the hospitalist service with chief diagnosis of right middle and lower lobe pneumonia and
was started on antibiotics. Pulmonary consultation was requested for further input.
Past Medical History: Reports Other ( kidney stones, CKD, prior nephrectomy, hypertension, obesity, infrarenal AAA, pulmonary embolism in the setting of COVID and hospitalization status post anticoagulation for 3 months)
-History of laryngeal squamous cell cancer, status postsurgical resection.
Past Surgical History: Reports None and Other (Left nephrectomy)
Social History
Tobacco: Former Smoker. Quit around age 51, close to [id number] smoking history.
Alcohol: None
Drug: None
Personal:
Living: With Family
Family History
Family History: Not pertinent
Allergies / Home Medications
Allergies / Home Medications
Allergies
Allergy/AdvReac Type Severity Reaction Status Date / Time
No Known Allergies Allergy Verified 11/18/24 12:39
Home Medications
�Medication �Instructions �Recorded �Confirmed �Last Taken �Type
alfuzosin 10 mg tablet,extended 10 mg PO DAILY Urinary Issue 09/08/20 11/18/24 11/25/23 History
release 24 hr
ascorbic acid (vitamin C) 500 mg 500 mg PO QPM Supplement 07/22/23 11/18/24 2 Days Ago History
tablet (Vitamin C) ~11/16/24
atorvastatin 10 mg tablet (Lipitor) 10 mg PO DAILY High Cholesterol 07/22/23 11/18/24 11/26/23 History
acetaminophen 500 mg tablet 1,000 mg PO BIDPRN PRN mild 06/05/24 11/18/24 2 Days Ago History
(Tylenol Extra Strength) pain/fever ~11/16/24
amlodipine 5 mg tablet 5 mg PO DAILY 11/18/24 11/18/24 Unknown History
benzonatate 1 cap PO ONCE PRN cough 11/18/24 11/18/24 11/18/24 History
guaifenesin 1,200 mg tablet, 1,200 mg PO Q12H PRN cough 11/18/24 11/18/24 11/18/24 History
extended release 12 hr (Mucinex)
ubidecarenone-omega 3-vit E 50 1 cap PO QPM 11/18/24 11/18/24 Unknown History
mg-300 (180-120)mg-30 unit capsule
vitamin D3-vitamin K2 1 tab PO QPM 11/18/24 11/18/24 Unknown History
Review of Systems
-
Hematologic/Lymphatic: Other (All 14 systems reviewed and negative except as stated above in the history of present illness.)
Vitals / Labs / Diagnostic Testing
Vital Signs
Temp Pulse Resp BP Pulse Ox
98.7 F 81 18 127/83 92
11/19/24 08:16 11/19/24 08:16 11/19/24 08:16 11/19/24 09:20 11/19/24 08:16
Lab Data
11/19/24 06:23
11/19/24 06:23
Microbiology
11/18/24 23:45 Urine Legionella Urinary Antigen - Final
Negative for Legionella pneumophila Serogroup 1 antigen.
A negative result does not rule out the possiblity of
Legionella infection due to other serogroups or species of
Legionella. Clinical correlation is recommended.
11/18/24 23:45 Urine Streptococcus pneumoniae Antigen (M - Final
Negative for Streptococcus pneumoniae antigen.
A negative result does not exclude infection with
Streptococcus pneumoniae. Clinical correlation is
recommended.
11/18/24 17:56 Nasal Swab Influenza Types A & B (VAIBHAV) - Final
Negative for Influenza A & B, NAAT
Negative results must be combined with clinical observations
and patient history.
Nucleic Acid Amplification test (NAAT)performed on the
[employer] platform.
Diagnostic Testing:
Physical Exam
-
HEENT: Normocephalic
Cardiovascular: S1/S2
Respiratory: Rhonchi (Primarily in the right lower hemithorax)
GI: Soft and Non Distended
Neurology: Awake and Alert
Skin: Warm
General: Comfortable
Assessment
-
#1. Right middle and right lower lobe pneumonia.
- Patient has extensive infiltrates on chest x-ray suggestive of involvement of right middle and right lower lobe. Also prior history of right lower lobe pneumonia in May 2024 and another hospitalization related to COVID complicated by
pneumonia.
- Will proceed with the CT chest to evaluate for any underlying mass considering patient had infiltrate even back in May 2024
- Continue ceftriaxone and azithromycin for now, follow-up on cultures
- Legionella and streptococcal antigen negative, respiratory culture pending, MRSA screen pending. Influenza A, B and COVID-19 negative.
- O2 support as needed
- Prior history of squamous cell carcinoma vocal cords in 2009, prior history of smoking
- Patient will need a 6 to 8 weeks follow-up CT scan to ensure resolution of infiltrates and normal underlying parenchyma
- Recommend speech therapy consult to evaluate for any aspiration.
#2. History of pulmonary embolism
- Patient reports diagnosis of pulmonary embolism around May this year and has reportedly completed 3 months of anticoagulation
- Per patient, pulmonary embolism was felt to be triggered in the setting of hospitalization with COVID-19 infection
#3. History of Smoking.
- Known prior history of laryngeal squamous cell carcinoma s/p surgery
- Patient reports having quit around age 51
- Not on any inhaler therapy at baseline, can pursue pulmonary function testing and 6-minute walk test as outpatient
- Outpatient pulmonary follow-up
Other medical diagnoses:
- Hypertension
- Chronic kidney disease
- History of nephrolithiasis
- History of AAA
- History of laryngeal squamous cell carcinoma s/p surgery
Total time spent on this consultation/encounter __62__ minutes which includes review of history, physical exam, medications, laboratory data, personal review of imaging, extensive review of outpatient records, discussion with care team and
respiratory therapy.
Data:
CT Chest 10/2024: Findings most consistent with right upper lobe and right lower lobe pneumonia. Recommend follow-up after conservative therapy to assess for resolution.
Visualized trachea and bronchi appear patent without obstructing mass. Limited assessment of the hilar region secondary lack of intravenous contrast. As far as visualized, no definitive obstructing hilar mass or adenopathy is appreciated. Consider
follow-up with intravenous contrast for better assessment of the hilar structures if indicated. No mediastinal mass or adenopathy.
Trace bilateral pleural effusions.
CXR 10/2024: There is an infiltrate throughout the right mid/lower lung consistent with pneumonia. Recommend follow-up to ensure resolution.
CXR 05/2024: Right basilar pneumonia, progressed.
ECHO 08/2024: Normal left ventricular size, wall thickness and systolic function. No regional
wall motion abnormalities are seen. LV ejection fraction is 55-60% by Valladares's
method of discs. Normal diastolic function.
Normal right ventricular size and function.
Aortic sclerosis without stenosis.
Compared to the previous echo 04/04/24, there is no significant change.
Nuclear stress test 08/2022: Fixed defect seen.
Vocal cord lesion biopsy 05/2009: Squamous cell CA
--- NOTE | 2024-11-19 10:10 | PTOTSP ---
Speech Therapy Evaluation:
Bedside swallow evaluation completed. Pt with mild oral impairments related to dentition versus true oral dysphagia. Frequent cough observed in the absence of PO intake (likely in the setting of current PNA) that did not increase throughout trials.
Unable to successfully complete 3oz swallow screen given interrupted drinking, however pt did not demonstrate any s/sx of aspiration following consumption of all 3oz. Pt with current RML and RLL PNA and has a hx of RLL in May 2024, though pt dx
COVID at the time. No prior PNAs per chart review and no significant predisposing risk factors of dysphagia.
Recommend:
1. Continue regular solids and thin liquids
2. Medications as tolerated
3. Strict aspiration precautions
4. MEDICAL ASSISTING PROGRAM DIRECTOR to follow to monitor tolerance of diet, overall medical presentation (labs, vitals, imaging), and to determine if pt would benefit from instrumental study.
[2024-11-19 11:02] VITALS: PULSE 73; O2SAT 92
--- NOTE | 2024-11-19 11:24 | W.PN.HOSP.TC ---
Today's Communication/Plan
-
CT chest
consult pulmonary
SQ heparin
Assessment / Plan
Assessment / Plan
Physical Exam
General: Well Developed, Well Nourished and No Apparent Distress
HEENT: NormoCephalic, Moist mucous membranes and Atraumatic
Respiratory: Clear, Crackles, Non Labored Respirations and Other (Left-sided diaphragmatic hernia); No Accessory Resp Muscle Use
Cardiac: S1/S2 and Regular Rhythm; No Murmur or Rub
GI: Soft, Non Tender, Non Distended and Normal Bowel Sounds; No Organomegaly
Rectal: no bleeding
Musculoskeletal: No Clubbing, No Cyanosis and No Edema
Skin: No Rash
Neuro: Alert, Oriented (To person and place) and Nonfocal/grossly intact
Psych: calm
84-year-old with past medical history of hypertension, obesity, CKD, hyperlipidemia, AAA with recent ultrasound showing stability presenting to the emergency department with cough, shortness of breath, hypoxia and a fever. Chest x-ray shows right
middle and right lower lobe infiltrates. He has leukocytosis. He remains hemodynamically stable.
PLAN:
Right-sided multifocal pneumonia -high risk of decompensation
Sepsis POA
Normal lactic acid
Mild hypoxia only
-he is feeling better
still on oxygen, order CT chest
d/w pulmonary doctor
f/w blood cultures
-COVID/flu negative
-Legionella and pneumococcal urinary antigens
# IVANA
Hypertension
-amlodipine with hold parameters
AAA - stable size
-Continue antihypertensive
-Continue statin, lfts normalized
BPH
- Continue alfuzosin
DVT prophylaxis -heparin subcu
CODE STATUS�full code
Total time spent to see the patient, examine the patient, review data and lab result, discuss treatment plan with patient, nursing staff around 55 minutes
Anticipated Discharge: > 48 hours
Subjective/Interval History
-
Date of Service: November 19, 2024
Objective Data
-
Labs:
Laboratory Results
11/19/24
06:23
WBC 14.5 H
Hgb 12.0 L
Hct 35.3 L
Plt Count 119 L
Sodium 137
Potassium 3.8
Chloride 109 H
Carbon Dioxide 21 L
BUN 27 H
Creatinine 1.5 H
Glucose 92
Calcium 8.5
Vital Signs:
Vital Signs
Temp Pulse Resp BP Pulse Ox
99.2 F 81 18 127/83 92
11/19/24 11:01 11/19/24 08:16 11/19/24 08:16 11/19/24 09:20 11/19/24 08:16
I&O
11/18/24 11/19/24 11/20/24
06:59 06:59 06:59
Intake Total 720 / 720
Output Total 550 / 550
Balance 170 / 170
[2024-11-19 13:04] VITALS: BP 121/55; PULSE 77; O2SAT 94
[2024-11-19 15:23] VITALS: BP 128/62
[2024-11-19] MEDS: FLUSH (NSS) 2 FLUSH IV (16:58)
[2024-11-19] MEDS: STERILE WATER FOR INJECTION 10 ML IV (17:02)
[2024-11-19] MEDS: ZITHROMAX INFUSION 250 IV (17:02)
[2024-11-19] MEDS: ROCEPHIN 1000 MG IV (17:02)
[2024-11-19 23:01] VITALS: BP 110/52
[2024-11-20 07:20] LABS: Hematocrit 36.3 % (39.0-52.0); Hemoglobin 12.1 g/dL (13.0-18.0); Mean Corp Hgb Conc. 33.3 g/dL (33.0-37.0); Mean Corpuscular Hgb 32.4 pg (27.0-31.0); Mean Corpuscular Volume 97.1 fL (80.0-94.0); Mean Platelet Volume 13.7 fL (7.4-10.4); Platelet Count 125 10^3/uL (130-400); Red Blood Cell Count 3.74 10^6/uL (4.70-6.10); Red Cell Dist. Width 12.6 % (11.5-14.5); White Blood Cell Count 13.1 10^3/uL (4.8-10.8)
[2024-11-20 07:42] VITALS: BP 127/59
[2024-11-20 07:53] LABS: Blood Urea Nitrogen 28 mg/dl (9-20); Calcium 8.8 mg/dl (8.4-10.2); Carbon Dioxide 21 mmol/L (22-30); Chloride 110 mmol/L (98-107); Estimated Creatinine Clearance 47 ml/min; Glucose 84 mg/dl (70-99); Potassium 3.9 mmol/L (3.5-5.1); Sodium 140 mmol/L (135-145); eGFR 54.51
[2024-11-20] MEDS: FLOMAX 0.4 MG PO (08:11)
[2024-11-20] MEDS: MUCINEX 600 MG PO ×2 (08:11→19:41)
[2024-11-20] MEDS: LIPITOR 10 MG PO (08:11)
[2024-11-20] MEDS: NORVASC 5 MG PO (08:11)
[2024-11-20] MEDS: HEPARIN 5000 UNITS SC ×3 (08:11→23:20)
--- NOTE | 2024-11-20 09:18 | W.PN.HOSP.TC ---
Today's Communication/Plan
-
Video swallow
IV Abx
f/w blood culture
appreciat epulmonary input
Assessment / Plan
Assessment / Plan
Physical Exam
General: Well Developed, Well Nourished and No Apparent Distress
HEENT: NormoCephalic, Moist mucous membranes and Atraumatic
Respiratory: Clear, Crackles, Non Labored Respirations and Other (Left-sided diaphragmatic hernia); No Accessory Resp Muscle Use
Cardiac: S1/S2 and Regular Rhythm; No Murmur or Rub
GI: Soft, Non Tender, Non Distended and Normal Bowel Sounds; No Organomegaly
Rectal: no bleeding
Musculoskeletal: No Clubbing, No Cyanosis and No Edema
Skin: No Rash
Neuro: Alert, Oriented (To person and place) and Nonfocal/grossly intact
Psych: calm
84-year-old with past medical history of hypertension, obesity, CKD, hyperlipidemia, AAA with recent ultrasound showing stability presenting to the emergency department with cough, shortness of breath, hypoxia and a fever. Chest x-ray shows right
middle and right lower lobe infiltrates. He has leukocytosis. He remains hemodynamically stable.
PLAN:
Right-sided multifocal pneumonia -high risk of decompensation
Sepsis POA
Normal lactic acid
Mild hypoxia only
-he is feeling better but no energy
still on oxygen
CT chest showed right sided pneumonia
I d/w , recurrent PNA in last few months, known laryngeal cancer s/p radiation only, still risk of aspiration exists, will do video swallow. d/w speech therapy
d/w pulmonary doctor
f/w blood culture
-COVID/flu negative
-Legionella and pneumococcal urinary antigens
# IVANA
Hypertension
-amlodipine with hold parameters
AAA - stable size
-Continue antihypertensive
-Continue statin, lfts normalized
BPH
- Continue alfuzosin
DVT prophylaxis -heparin subcu
CODE STATUS�full code
Total time spent to see the patient, examine the patient, review data and lab result, discuss treatment plan with patient, , nursing staff around 55 minutes
Anticipated Discharge: > 48 hours
Subjective/Interval History
-
Date of Service: November 20, 2024
He feels weak
No chest pain
Objective Data
-
Labs:
Laboratory Results
11/20/24
06:40
WBC 13.1 H
Hgb 12.1 L
Hct 36.3 L
Plt Count 125 L
Sodium 140
Potassium 3.9
Chloride 110 H
Carbon Dioxide 21 L
BUN 28 H
Creatinine 1.3
Glucose 84
Calcium 8.8
Vital Signs:
Vital Signs
Temp Pulse Resp BP Pulse Ox
99.4 F 80 18 127/59 96
11/20/24 07:42 11/20/24 07:42 11/20/24 07:42 11/20/24 08:11 11/20/24 07:42
I&O
11/19/24 11/20/24 11/21/24
06:59 06:59 06:59
Intake Total 720 / 720 1080 / 1080
Output Total 550 / 550 400 / 400
Balance 170 / 170 680 / 680
--- NOTE | 2024-11-20 12:38 | PTCARENOTE ---
patient took off oxygen to go to the bathroom- got out of bed unassisted, bed alarm alerting nurse- entered room and found patient sitting on side of bed . he had been incontinent of bowel, cleansed patient and linens changed. no SOB noted, POX on
room air 89%, placed back on 1 liter of oxygen. assisted patient to chair, chair alarm in place. instructed patient not to get up unassisted. patient to be moved closer to nurses station today once room available. plan of care on going
--- NOTE | 2024-11-20 14:40 | PTOTSP ---
Videofluoroscopic swallow study
Patient presents with within functional limits-mild oral stage and mild pharyngeal dysphagia likely as a late effect of radiation to treat laryngeal cancer.
- No aspiration occurred. There was upper penetration with thin liquids via tsp/cup that did not progress further into the larynx and cleared with subsequent swallows.
- There was at most moderate pharyngeal residue in the valleculae with solids that reduced with a thin liquid wash.
Recommend:
1. IDDSI Level 7 Regular, Thin
2. Medications as best tolerated
3. Strategies: upright to 90 degrees, small single sips/bites, slow rate, multiple swallows, alternate bites with sips of liquid
4. Oral care 3x daily
5. Brief dysphagia therapy for instruction in compensations.
[2024-11-20 15:45] VITALS: BP 130/58
--- NOTE | 2024-11-20 16:25 | CM ---
Met with patient to obtain information for assessment. Patient stated that he lives with his in a one story home with three steps to enter. He is independent with his ADLs, personal care, dressing and bathing. 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
do sterile tech. He has a walker and a cane from a previous surgery that he does not use. He does not have o2 at home. He has never had VN or been to a SNF.
Patient has a prescription plan and uses, [facility] in [place] for all of his medications.
Patient's PCP is, Pj Mendez.
Plan: Case management will continue to follow and assist with discharge planning. Patient would like to return home when stable. Will watch for o2 needs.
--- NOTE | 2024-11-20 16:54 | W.PN.PUL3 ---
Today's Communication / Plan
-
- Recommend 7 days of cefdinir, 5 days of Azitho
- O/p follow up with Pulmonary clinic
- Discharge planning
- Please call as needed, Pulmonary team will sign off.
Assessment
-
#1. Right middle and right lower lobe pneumonia.
- Patient has extensive infiltrates on chest x-ray suggestive of involvement of right middle and right lower lobe. Also prior history of right lower lobe pneumonia in May 2024 and another hospitalization related to COVID complicated by
pneumonia.
- Will proceed with the CT chest to evaluate for any underlying mass considering patient had infiltrate even back in May 2024
- Continue ceftriaxone and azithromycin for now, follow-up on cultures
- Legionella and streptococcal antigen negative, respiratory culture pending, MRSA screen pending. Influenza A, B and COVID-19 negative.
- O2 support as needed
- Prior history of squamous cell carcinoma vocal cords in 2009, prior history of smoking
- Patient will need a 6 to 8 weeks follow-up CT scan to ensure resolution of infiltrates and normal underlying parenchyma
- Recommend speech therapy consult to evaluate for any aspiration.
- Clinically improving, out patient follow up with Pulmonary clinic.
#2. History of pulmonary embolism
- Patient reports diagnosis of pulmonary embolism around May this year and has reportedly completed 3 months of anticoagulation
- Per patient, pulmonary embolism was felt to be triggered in the setting of hospitalization with COVID-19 infection
#3. History of Smoking.
- Known prior history of laryngeal squamous cell carcinoma s/p surgery
- Patient reports having quit around age 51
- Not on any inhaler therapy at baseline, can pursue pulmonary function testing and 6-minute walk test as outpatient
- Outpatient pulmonary follow-up
Other medical diagnoses:
- Hypertension
- Chronic kidney disease
- History of nephrolithiasis
- History of AAA
- History of laryngeal squamous cell carcinoma s/p surgery
Total time spent on this consultation/encounter __45__ minutes which includes review of history, physical exam, medications, laboratory data, personal review of imaging, extensive review of outpatient records, discussion with care team and
respiratory therapy.
Data:
CT Chest 10/2024: Findings most consistent with right upper lobe and right lower lobe pneumonia. Recommend follow-up after conservative therapy to assess for resolution.
Visualized trachea and bronchi appear patent without obstructing mass. Limited assessment of the hilar region secondary lack of intravenous contrast. As far as visualized, no definitive obstructing hilar mass or adenopathy is appreciated. Consider
follow-up with intravenous contrast for better assessment of the hilar structures if indicated. No mediastinal mass or adenopathy.
Trace bilateral pleural effusions.
CXR 10/2024: There is an infiltrate throughout the right mid/lower lung consistent with pneumonia. Recommend follow-up to ensure resolution.
CXR 05/2024: Right basilar pneumonia, progressed.
ECHO 08/2024: Normal left ventricular size, wall thickness and systolic function. No regional
wall motion abnormalities are seen. LV ejection fraction is 55-60% by Valladares's
method of discs. Normal diastolic function.
Normal right ventricular size and function.
Aortic sclerosis without stenosis.
Compared to the previous echo 04/04/24, there is no significant change.
Nuclear stress test 08/2022: Fixed defect seen.
Vocal cord lesion biopsy 05/2009: Squamous cell CA
Subjective Data
-
Date of Service:
Date of Service: November 20, 2024
Subjective:
Comfortable, no acute distress
Review of Systems
Genitourinary: Other (No new symptoms reported )
Objective Data
Data Reviewed
Vital Signs / I&O / Oxygen:
Vital Signs
Temp Pulse Resp BP Pulse Ox
99.1 F 87 20 130/58 94
11/20/24 15:45 11/20/24 15:45 11/20/24 15:45 11/20/24 15:45 11/20/24 15:45
Intake and Output
11/19/24 11/20/24 11/21/24
06:59 06:59 06:59
Intake Total 720 / 720 1080 / 1080
Output Total 550 / 550 400 / 400
Balance 170 / 170 680 / 680
SaO2 94
Nasal Cannula flow liters per 1
minute
Physical Exam
General: Comfortable
HEENT: Normocephalic
Cardiovascular: S1-S2
Respiratory: Clear
GI: Non Distended
Neurology: Awake and Alert
Skin: Warm
Labs/Micro/Reports
Lab Data
11/20/24 06:40
11/20/24 06:40
Microbiology
11/18/24 12:59 Blood/Venous Blood Culture - Preliminary
No Growth in 48 hours- Final report to follow
11/18/24 23:45 Sputum Respiratory Culture - Preliminary
Usual Respiratory Cecilia
11/18/24 23:45 Sputum Gram Stain - Preliminary
11/18/24 23:29 Nose MRSA Screen - Final
No Methicillin Resistant Staphylococcus aureus isolated.
11/18/24 23:45 Urine Legionella Urinary Antigen - Final
Negative for Legionella pneumophila Serogroup 1 antigen.
A negative result does not rule out the possiblity of
Legionella infection due to other serogroups or species of
Legionella. Clinical correlation is recommended.
11/18/24 23:45 Urine Streptococcus pneumoniae Antigen (M - Final
Negative for Streptococcus pneumoniae antigen.
A negative result does not exclude infection with
Streptococcus pneumoniae. Clinical correlation is
recommended.
11/18/24 17:56 Nasal Swab Influenza Types A & B (VAIBHAV) - Final
Negative for Influenza A & B, NAAT
Negative results must be combined with clinical observations
and patient history.
Nucleic Acid Amplification test (NAAT)performed on the
[employer] platform.
[2024-11-20] MEDS: ZITHROMAX INFUSION 250 IV (18:04)
[2024-11-20] MEDS: ROCEPHIN 1000 MG IV (18:04)
[2024-11-20] MEDS: FLUSH (NSS) 2 FLUSH IV (18:04)
[2024-11-20] MEDS: STERILE WATER FOR INJECTION 10 ML IV (18:04)
[2024-11-20 23:10] VITALS: BP 126/61
[2024-11-21 07:35] VITALS: BP 145/74
[2024-11-21] MEDS: LIPITOR 10 MG PO (08:54)
[2024-11-21] MEDS: NORVASC 5 MG PO (08:54)
[2024-11-21] MEDS: FLOMAX 0.4 MG PO (08:54)
[2024-11-21] MEDS: MUCINEX 600 MG PO ×2 (08:54→20:38)
[2024-11-21] MEDS: HEPARIN 5000 UNITS SC ×2 (08:54→17:10)
[2024-11-21] MEDS: FLUSH (NSS) 1 FLUSH IV (08:55)
[2024-11-21 08:57] VITALS: BMI 31.7
[2024-11-21] MEDS: TYLENOL 1000 MG PO (08:59)
--- NOTE | 2024-11-21 09:42 | W.PN.HOSP.TC ---
Addendum entered and electronically signed by Elly Short MD 11/21/24 13:55:
Addendum
Right big toe tenderness and swelling. Patient reported severe pain with simple touch. Clinical exam consistent with Acute gout. With his age and history of chronic kidney disease, will give IV steroid.
End
Original Note:
Today's Communication/Plan
-
Blood work
Repeat chest x ray in am
likely dc in 24-48 hours
Assessment / Plan
Assessment / Plan
Physical Exam
General: Well Developed, Well Nourished and No Apparent Distress
HEENT: NormoCephalic, Moist mucous membranes and Atraumatic
Respiratory: Clear, Crackles, Non Labored Respirations and Other (Left-sided diaphragmatic hernia); No Accessory Resp Muscle Use
Cardiac: S1/S2 and Regular Rhythm; No Murmur or Rub
GI: Soft, Non Tender, Non Distended and Normal Bowel Sounds; No Organomegaly
Rectal: no bleeding
Musculoskeletal: No Clubbing, No Cyanosis and No Edema
Skin: No Rash
Neuro: Alert, Oriented (To person and place) and Nonfocal/grossly intact
Psych: calm
84-year-old with past medical history of hypertension, obesity, CKD, hyperlipidemia, AAA with recent ultrasound showing stability presenting to the emergency department with cough, shortness of breath, hypoxia and a fever. Chest x-ray shows right
middle and right lower lobe infiltrates. He has leukocytosis. He remains hemodynamically stable.
PLAN:
Right-sided multifocal pneumonia -high risk of decompensation
Sepsis POA
Normal lactic acid
Mild hypoxia only
-he is feeling better
still on oxygen
CT chest showed right sided pneumonia
I d/w , recurrent PNA in last few months, known laryngeal cancer s/p radiation only, still risk of aspiration exists, did video swallow and no aspiration occurred . d/w speech therapy, dysphagia therapy for instruction in compensations
d/w pulmonary doctor
Negative blood culture
-COVID/flu negative
-Negative Legionella and pneumococcal urinary antigens
# IVANA
Hypertension
-amlodipine with hold parameters
AAA - stable size
-Continue antihypertensive
-Continue statin, lfts normalized
BPH
- Continue alfuzosin
DVT prophylaxis -heparin subcu
CODE STATUS�full code
Total time spent to see the patient, examine the patient, review data and lab result, discuss treatment plan with patient, , nursing staff around 55 minutes
Anticipated Discharge: Within 24 hours
Subjective/Interval History
-
Date of Service: November 21, 2024
He feels better
No sob
No cough
Objective Data
-
Vital Signs:
Vital Signs
Temp Pulse Resp BP Pulse Ox
98.7 F 81 20 145/74 93
11/21/24 07:35 11/21/24 08:54 11/21/24 07:35 11/21/24 08:54 11/21/24 07:35
I&O
11/20/24 11/21/24 11/22/24
06:59 06:59 06:59
Intake Total 1080 / 1080 730 / 730 240 / 240
Output Total 400 / 400 1050 / 1050 125 / 125
Balance 680 / 680 -320 / -320 115 / 115
--- NOTE | 2024-11-21 10:30 | PTCARENOTE ---
Pt complaining that pt is experiencing 7/10 right great toe pain. No edema or redness noted, no open areas. Pt states that he bumped toe at home prior to coming into hospital. PRN Tylenol 1,000mg administered for pain. Pt is asking if he could
possibly have a xray while he is in the hospital. Made Dr. Short aware of above.
[2024-11-21] MEDS: SOLU-MEDROL PF 40 MG IV (14:24)
[2024-11-21 15:19] VITALS: BP 128/75
[2024-11-21] MEDS: STERILE WATER FOR INJECTION 10 ML IV (18:32)
[2024-11-21] MEDS: ZITHROMAX INFUSION 250 IV (18:32)
[2024-11-21] MEDS: ROCEPHIN 1000 MG IV (18:32)
[2024-11-21 23:04] VITALS: BP 135/66
[2024-11-22] MEDS: HEPARIN 5000 UNITS SC ×2 (00:06→09:33)
[2024-11-22 07:19] VITALS: BP 121/63
[2024-11-22] MEDS: NORVASC 5 MG PO (09:32)
[2024-11-22] MEDS: MUCINEX 600 MG PO (09:32)
[2024-11-22] MEDS: FLUSH (NSS) 1 FLUSH IV (09:33)
[2024-11-22] MEDS: FLOMAX 0.4 MG PO (09:33)
[2024-11-22] MEDS: LIPITOR 10 MG PO (09:33)
[2024-11-22] MEDS: DELTASONE 20 MG PO (09:36)
[2024-11-22] MEDS: SOLU-MEDROL PF 40 MG IV (09:37)
--- NOTE | 2024-11-22 10:13 | W.PN.HOSP.TC ---
Today's Communication/Plan
-
DC after oxygen check
Assessment / Plan
Assessment / Plan
Physical Exam
General: Well Developed, Well Nourished and No Apparent Distress
HEENT: NormoCephalic, Moist mucous membranes and Atraumatic
Respiratory: Clear, no wheezes, no rales, No Accessory Resp Muscle Use
Cardiac: S1/S2 and Regular Rhythm; No Murmur or Rub
GI: Soft, Non Tender, Non Distended and Normal Bowel Sounds; No Organomegaly
Rectal: no bleeding
Musculoskeletal: No Clubbing, No Cyanosis and No Edema
Skin: No Rash
Neuro: Alert, Oriented X3, and Nonfocal/grossly intact
Psych: calm
84-year-old with past medical history of hypertension, obesity, CKD, hyperlipidemia, AAA with recent ultrasound showing stability presenting to the emergency department with cough, shortness of breath, hypoxia and a fever. Chest x-ray shows right
middle and right lower lobe infiltrates. He has leukocytosis. He remains hemodynamically stable.
PLAN:
Right-sided multifocal pneumonia much improved
Sepsis POA , resolved.
Normal lactic acid
Mild hypoxia and resolved.
-he is feeling better , anxious to go home
Home O2 evaluation
CT chest showed right sided pneumonia
I d/w , recurrent PNA in last few months, known laryngeal cancer s/p radiation only, still risk of aspiration exists, did video swallow and no aspiration occurred . d/w speech therapy, dysphagia therapy for instruction in compensations
d/w pulmonary doctor, for OP follow up
Negative blood culture
-COVID/flu negative
-Negative Legionella and pneumococcal urinary antigens
#Acute gouty arthritis of right big toe. No incidents per patient. Given steroid with marked improvement. Can follow oral prednisone in the outpatient setting. Advised strongly to follow-up with his a primary care doctor regarding further
treatment/prevention of gout.
# IVANA
Resolved.
Hypertension
-amlodipine with hold parameters
AAA - stable size
-Continue antihypertensive
-Continue statin, lfts normalized
BPH
- Continue alfuzosin
DVT prophylaxis -heparin subcu
CODE STATUS�full code
Total discharge time spent to see the patient, examine the patient, review data and lab result, discuss discharge plan with patient, nursing staff around 675 minutes
Anticipated Discharge: Today
Subjective/Interval History
-
Date of Service: November 22, 2024
He feels better
No pain in chest or sob
No fevers
Objective Data
-
Vital Signs:
Vital Signs
Temp Pulse Resp BP Pulse Ox
98.1 F 68 20 121/63 95
11/22/24 07:19 11/22/24 09:32 11/22/24 07:19 11/22/24 09:32 11/22/24 09:25
I&O
11/21/24 11/22/24 11/23/24
06:59 06:59 06:59
Intake Total 730 / 730 720 / 720
Output Total 1050 / 1050 825 / 825
Balance -320 / -320 -105 / -105
[2024-11-22 11:33] VITALS: BP 131/65
--- NOTE | 2024-11-22 12:27 | W.DCSUMMARY ---
Discharge Summary
Discharge Data
Date of Admission: 11/18/24
Date of Discharge: 11/22/24
-
Pending Results: No
Hospital Course
84 years old male presented to the emergency room with fever, cough and dyspnea. Patient reported a prior sore throat before developing the cough. Patient reported similar episode of hospitalization and was diagnosed with pneumonia. Patient was
found to have fever and mild hypoxia. Patient met the criteria of sepsis. He was admitted to the hospital received intravenous antibiotics. Patient was evaluated by pulmonary doctor. He had negative COVID, influenza, streptococcal pneumonia,
Legionella. Blood culture came back negative. He had mild elevation in creatinine to 1.4 and came back to baseline 1.3 upon discharge. His oxygenation improved and did not need oxygen. Patient had scan of the chest that was consistent with
right-sided pneumonia. Pulmonary doctor recommended close follow-up in outpatient setting. Patient was evaluated by speech therapist and had video swallow that did not show aspiration. Patient was educated regarding aspiration precautions and
safest way to eat as patient had history of radiation to his larynx for cancer treatment. Patient started to have right big toe swelling and tenderness. He was diagnosed with acute gouty arthritis. He was given steroid therapy and advised to
follow-up with his a primary care doctor for further treatment and prevention. Patient remained hemodynamically stable. He was evaluated by physical therapy and recommended home health services. Patient was able to tolerate diet and he wanted to
be discharged and follow with pulmonary in the office. Patient was discharged in a stable condition and to finish the course of oral antibiotics as outpatient.
Discharge Plan
-
Patient Disposition: Home (Routine Discharge)
Discharge Diagnosis/Procedures: Pneumonia
You are seen by pulmonary doctor. You had speech evaluation and video swallow. We recommend to continue aspiration precautions and follow-up with the instructions. Blood culture did not show any growth. Negative
Legionella/Streptococcus/COVID/influenza
-Acute gout, you are treated with steroid therapy. Follow-up with your primary care physician for further recommendation and prevention treatment.
Diet: As tolerated
Referrals:
William Castillo MD [Active, Pulmonary Medicine] - in four to six weeks
Pj Mendez MD [Family Provider, [facility]] - in one to two weeks
Prescriptions:
New
prednisone 20 mg Tablet
20 mg PO DAILY Qty: 3 0RF
guaifenesin 600 mg Tablet Extended Release 12hr
600 mg PO Q12 Qty: 10 0RF
cefdinir 300 mg capsule
300 mg PO BID Qty: 8 0RF
Continued
alfuzosin 10 MG tablet extended release 24 hr
10 mg PO DAILY
atorvastatin [Lipitor] 10 mg Tablet
10 mg PO DAILY
ascorbic acid (vitamin C) [Vitamin C] 500 mg Tablet
500 mg PO QPM
acetaminophen [Tylenol Extra Strength] 500 mg Tablet
1,000 mg PO BIDPRN PRN (Reason: mild pain/fever)
amlodipine 5 mg Tablet
5 mg PO DAILY
ubidecarenone-omega 3-vit E 50-300-30 mg-mg-unit Capsule
1 cap PO QPM
vitamin D3-vitamin K2
1 tab PO QPM
Discontinued
guaifenesin [Mucinex] 1,200 mg Tablet Extended Release 12hr
1,200 mg PO Q12H PRN (Reason: cough)
benzonatate
1 cap PO ONCE PRN (Reason: cough)
Patient Comments:
11/18/2024, spouse gave pt. one capsule from her own prescription per spouse. Spouse does not know the strength of this med.
Discharge Orders:
Discharge Patient (As Directed); Ordered 11/22/24
Ordered By: Elly Short
Discharge Date and Time
Discharge Date/Time: 11/22/24 12:18
Print Language: TAJIK
== END 2024-11-22 12:18 | disposition home or self-care (01) | DRG 871 ==
LOC: 4 EAST ACU 19:48
PROVIDERS: Emergency Medicine; Nurse Practitioner; ADMITTING PHYSICIAN Internal Medicine; ATTENDING PHYSICIAN Internal Medicine; CONSULT PHYSICIAN Internal Medicine; EMERGENCY PHYSICIAN Emergency Medicine; FAMILY PHYSICIAN Family Medicine
DX: A41.9 Sepsis, unspecified organism (principal); J18.9 Pneumonia, unspecified organism; N17.9 Acute kidney failure, unspecified; Z11.52 Encounter for screening for COVID-19; Z87.891 Personal history of nicotine dependence; I12.9 Hypertensive chronic kidney disease with stage 1 through stage 4 chronic kidney disease, or unspecified chronic kidney disease; N18.9 Chronic kidney disease, unspecified; I71.40 Abdominal aortic aneurysm, without rupture, unspecified; N40.0 Benign prostatic hyperplasia without lower urinary tract symptoms; M10.9 Gout, unspecified
CPT/HCPCS: 71046; 71250; 74230; 80048; 80053; 82962; 83605; 85025; 85027; 87040; 87070; 87205; 87449; 87502; 87811; 87899; 92610; 92611; 93005; 96365; 96375; 97116; 97162; 97166; 99285

== ENCOUNTER → 2025-01-07 17:23 | Outpatient (REF) | payer MEDICARE, OTHER, SELFPAY | LOC: RAD 17:23 | PROVIDERS: ATTENDING PHYSICIAN Internal Medicine; FAMILY PHYSICIAN Internal Medicine | DX: J18.8 Other pneumonia, unspecified organism (principal); J98.4 Other disorders of lung | CPT/HCPCS: 71250 ==

== ENCOUNTER → 2025-02-11 04:00 | Outpatient (REF) | payer MEDICARE, OTHER, SELFPAY | LOC: DHSLP 04:00 | PROVIDERS: ATTENDING PHYSICIAN Internal Medicine; FAMILY PHYSICIAN Internal Medicine | DX: G47.33 Obstructive sleep apnea (adult) (pediatric) (principal) | CPT/HCPCS: 95800 ==

== ENCOUNTER → 2025-02-24 10:18 | Outpatient (REF) | payer MEDICARE, OTHER, SELFPAY | LOC: RAD 10:18 | PROVIDERS: ATTENDING PHYSICIAN Surgery Vascular Surgery; FAMILY PHYSICIAN Internal Medicine | DX: I71.40 Abdominal aortic aneurysm, without rupture, unspecified (principal) | CPT/HCPCS: 76770 ==

== ENCOUNTER → 2025-05-13 10:31 | Outpatient (REF) | payer MEDICARE, OTHER, SELFPAY ==
[2025-05-13 11:50] LABS: Hematocrit 44.2 % (39.0-52.0); Hemoglobin 14.5 g/dL (13.0-18.0); Mean Corp Hgb Conc. 32.8 g/dL (33.0-37.0); Mean Corpuscular Volume 94.0 fL (80.0-94.0); Red Cell Dist. Width 13.0 % (11.5-14.5)
[2025-05-13 11:51] LABS: Nucleated Red Blood Cells % 0 % (-)
[2025-05-13 12:08] LABS: ALT (SGPT) 16 U/L (0-50); AST (SGOT) 26 U/L (17-59); Albumin 4.2 g/dl (3.5-5.0); Alkaline Phosphatase 100 U/L (38-126); Blood Urea Nitrogen 23 mg/dl (9-20); Calcium 9.2 mg/dl (8.4-10.2); Carbon Dioxide 27 mmol/L (22-30); Chloride 105 mmol/L (98-107); Glucose 91 mg/dl (70-99); HDL Cholesterol 40 mg/dl; LDL Cholesterol, Calculated 120 mg/dl; Potassium 4.4 mmol/L (3.5-5.1); Sodium 138 mmol/L (135-145); Total Protein 7.1 g/dl (6.3-8.2); Uric Acid 9.0 mg/dl (3.5-8.5); Very Low Density Lipoprotein 31 mg/dl (0-30); eGFR 45.91
[2025-05-13 12:39] LABS: Platelet Count 135 10^3/uL (130-400)
[2025-05-13 12:43] LABS: TSH 4.17 uIU/ml (0.47-4.68)
[2025-05-13 16:44] LABS: Lyme Antibody Screen, EIA Negative (Negative)
== END ==
LOC: REG 10:31
PROVIDERS: ATTENDING PHYSICIAN Internal Medicine
DX: Z00.00 Encounter for general adult medical examination without abnormal findings (principal); I10 Essential (primary) hypertension; E78.5 Hyperlipidemia, unspecified; I71.40 Abdominal aortic aneurysm, without rupture, unspecified; Q60.0 Renal agenesis, unilateral; Z85.21 Personal history of malignant neoplasm of larynx; Z86.711 Personal history of pulmonary embolism; J98.4 Other disorders of lung; N18.31 Chronic kidney disease, stage 3a; G47.33 Obstructive sleep apnea (adult) (pediatric); E66.9 Obesity, unspecified; Z87.39 Personal history of other diseases of the musculoskeletal system and connective tissue
CPT/HCPCS: 36415; 80053; 80061; 84153; 84154; 84443; 84550; 85025; 86618